=== PATIENT | female | born 1960 | race Caucasian/White ===

== ENCOUNTER 2016-09-30 20:27 | Emergency (ER) | payer MEDICARE, MEDICAID ==
[2016-09-30 22:56] VITALS: BP 117/74
--- NOTE | 2016-10-01 11:36 | CR ---
INDICATION: Fever. CHEST: Two PA views and a lateral view of the chest 09/30/2016, were compared with 07/03/2015 and 06/28/2013. Prominent AP diameter and somewhat flattened diaphragm leaves suggest COPD. No consolidating pneumonia or effusion could be identified, with somewhat heavy markings in the lower lung mercedes again noted, most likely fibrotic in nature. However, at the lung bases and especially on the right lung base and behind the heart on the left, it is difficult to exclude areas of patchy bronchopneumonia due to those heavy markings. The heart appeared normal in size and shape. The aorta is tortuous. Degenerative changes are noted in the spine of moderate degree. IMPRESSION: 1. No definite acute process, but difficult to exclude patchy bronchopneumonia at the lung bases due to somewhat heavy markings, most likely on the basis of fibrosis. 2. ASD aorta. 3. Probable COPD. 4. DJD spine. MTDD
--- NOTE | 2016-10-02 02:38 | ER ---
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 Martinez that her mesh in her abdomen from previous abdominal incisional hernias is disintegrating and will be following up to see Dr. Martinez this week. "It's breaking up." The patient had 101.8 temperature tonight. She has taken Tylenol and ibuprofen at 1830 hours, now the temperature is 100.1 orally. The patient is concerned about her fever and wanted to know if there is a problem with her mesh. REVIEW OF SYSTEMS: Otherwise negative except for noted above. ALLERGIES: Tegretol, Dilantin, alprazolam, Dilaudid, lorazepam, and prednisone - caused depression. OTHER DIAGNOSES: Hypothyroidism, type 2 diabetes, partial small bowel resection, gastroesophageal reflux, inguinal herniorrhaphy, incisional hernias of anterior abdominal wall with complications. MEDICATIONS: 1. Paxil 20 mg daily. 2. Levothyroxine 100 mcg daily. 3. Gabapentin 600 mg t.i.d. 4. Nexium 40 mg daily. 5. Albuterol 2 puffs q.i.d. 6. Acetaminophen p.r.n. PHYSICAL EXAMINATION: VITAL SIGNS: Blood pressure 133/86, heart rate 16, O2 saturations 99%, temperature 37.8 degrees centigrade. GENERAL: Alert woman, mild anxiety, has mild abdominal discomfort. HEENT: PERRLA intact. Pharynx without abnormality. Adequate hydration. Moist mucosa. NECK: Supple. No thyromegaly or masses in neck. LUNGS: Clear to auscultation without rales, rhonchi, or wheezes. ABDOMEN: She has multiple transverse paper tapes approximately 20 across the anterior abdomen over the fistula site and has a dressing. No erythema noted. Slight drainage, mild foul odor. No guarding. No rebound. No distention. Bowel sounds are present. No CVA percussion tenderness. PELVIC: Not performed. RECTAL: Not performed. EXTREMITIES: Lower extremities without edema. Deep tendon reflexes hypoactive upper and lower extremities. Cranial nerves 2 through 12 intact. LABORATORY STUDIES: White count 5600, PMNs 69, lymphocytes 19, monos 10, hemoglobin 11.3, platelets 203,000. Sodium 133, low; 3.6 potassium, low, but normal; chloride 104; CO2 of 22. GFR 57, slightly low. Glucose 122, reactive hyperglycemia. Lactic acid 1.4, normal. Calcium 8.5, bilirubin 0.6, AST 25, ALT 13, alkaline phosphatase 69, C-reactive protein 12.9. Urinalysis; many bacteria, 20/30 wbc's, few epithelial cells, large leukocyte esterase, moderate occult blood, etiology for the patient's fever indeterminate. It may be caused by mesh and abdominal enterocutaneous fistula, but presently I do not feel she has a significant complication for abdominal lesion. Urine was abnormal, but she is asymptomatic regarding urinary tract infection with multiple medication/antibiotic use in the past. I am loath to just throw some antibiotics at her. Per the [facility] - asymptomatic urinary tract infection, I do not feel the urinary tract is the source of her symptoms, she does not have frequency, urgency, dysuria, or difficulty passing urine. She is advised to continue taking fluids and keep her appointment with Dr. Martinez. Blood and urine cultures are pending and if any abnormalities are noted, she will be started on antibiotics earlier than that. DIAGNOSES: 1. Fever, etiology undetermined. 2. Asymptomatic bacteriuria, plan not to treat. 3. Several mesh breakdowns, multiple surgeries with enterocutaneous fistula and current one is breaking down causing inflammatory process and drainage in the anterior abdomen. 4. Hypothyroidism, treated. 5. Gastroesophageal reflux disease. 6. Inguinal herniorrhaphy, treated. 7. Multiple allergies to carbamazepine, phenytoin, morphine, lorazepam, and prednisone. Influenza test performed. Chest x-ray is negative. /[id number] LANETTE/RHETT
== END 2016-09-30 23:00 | disposition home or self-care (01) ==
LOC: FB.ED 20:27
DX: R50.9 Fever, unspecified (principal); K63.2 Fistula of intestine; E03.9 Hypothyroidism, unspecified; K21.9 Gastro-esophageal reflux disease without esophagitis; Z88.8 Allergy status to other drugs, medicaments and biological substances; Z88.6 Allergy status to analgesic agent; Z79.899 Other long term (current) drug therapy; E11.9 Type 2 diabetes mellitus without complications
CPT/HCPCS: 36415; 71020; 80053; 81001; 83605; 85025; 86140; 87040; 87086; 87088; 87186; 87804; 99283

== ENCOUNTER 2016-12-13 02:05 | Emergency (ER) | payer MEDICARE, MEDICAID ==
[2016-12-13 02:48] VITALS: BP 102/72
--- NOTE | 2016-12-13 12:48 | ER ---
DATE SEEN: 12/13/2016 TIME: The patient was seen at 0230 hours. CHIEF COMPLAINT: Increased drainage from a fistula and abdominal wound. HISTORY OF PRESENT ILLNESS: This 56-year-old woman with status post cancer resection in 2006, postoperative enterocutaneous fistula formation with subsequent revisions and complications of mesh and wound breakdown, status post previous gastric bypass surgery, 08/2014 (or 2016-patient uncertain). She was evaluated at [place] and subsequently on April 2016, went and had four revision surgeries on different days. She seemed to get better, but still has recurrent intermittent drainage and now the drain has been magnified to four times the usual amount that she experiences. She denies fever, cough, sore throat, chest pain, or shortness of breath. CURRENT MEDICATIONS: 1. Albuterol inhaler. 2. Tylenol Extra Strength 1000 mg q.6 hours. 3. Advair Diskus 250/50. 4. Nexium 40 mg daily. 5. Paxil 40 mg daily. 6. Levothyroxine 100 mcg daily. 7. Gabapentin 600 mg t.i.d. 8. Octreotide as needed IV. 9. Tizanidine for back pain 2 mg at bedtime. REVIEW OF SYSTEMS: HEENT: Negative. Mouth seems dry frequently, it is more than usual. Denies eye pain or headaches. NECK: Stiffness. LUNGS: Denies shortness of breath or cough, chest pain, or irregular heartbeat. ABDOMEN: Mild discomfort, not extensive. It is just the drainage that is a problem for her. MUSCULOSKELETAL: She has significant back pain with her elevated weight, at one time was 198 pounds. Now, she has gone to 183 pounds. With this weight loss, her back pain has improved and it is less. She has peripheral neuropathy and spasm from her lower back. Presently, the spasm is 0/10. Before she started tizanidine, it was extensive. Tizanidine has diminished her spasm and back discomfort markedly. The patient is edentulous. Occasionally, uses suckers - sucks on hard candies. She has been followed by the [facility] pharmacist and Dr. Martinez for a PICC line and TPN. She drinks minimal fluids and often times takes a dye blender, crushes ice and sucks on ice and uses ice to increased fluids, and to diminish the oral sucking and also swallowing needs, even though she takes fluid by using ice. ALLERGIES: Tegretol, Dilantin, Xanax, Dilaudid, Ativan, and prednisone. OTHER DIAGNOSES/PAST MEDICAL HISTORY: 1. Hypothyroidism. 2. Gastroesophageal reflux disease. 3. Inguinal hernia. PHYSICAL EXAMINATION: VITAL SIGNS: Blood pressure 102/72, heart rate 74, respirations 18, oxygen saturation 99%, and temperature is 36.4 degrees centigrade. Blood pressures supine 113/66, heart rate 59; sitting blood pressure 107/68, heart rate 68; and standing blood pressure 91/45, heart rate 95. CONSTITUTIONAL: The patient has remarkable good spirits, chuckles frequently, and edentulous. She has a trace of flash erythema on her face. It is not evanescent, but when she moves around and sits up, then it changes slightly. TMs negative. Pharynx dry. Oral mucosa appear edentulous. No thyromegaly, mass in neck, or cervical adenopathy. LUNGS: Clear to auscultation without rales, rhonchi, or wheezes. HEART: S1, S2. No murmur. Regular rate and rhythm. ABDOMEN: Soft, very demonstrable invagination- cavitation in anterior abdominal wall with central mid upper third distal two- thirds junction area of dark green, moist waterish fluid demonstrated. DERMIS: Has extensive scattered patches of erythema (secondary to tape). No vesicles, blisters, or bullae. No rents in the epidermis. Bowel sounds present. No guarding. EXTREMITIES: Without edema. No tenderness. LABORATORY STUDIES: Pending. ASSESSMENT: 1. Mild dehydration with orthostatic blood pressure changes with compensatory tachycardia. 2. Status post mesh implantation with fistula, multiple surgeries. 3. Weight loss over two months, 18 plus pounds. 4. Hypothyroidism. 5. Type 2 diabetes. 6. Small bowel resection. 7. GERD. 8. Inguinal herniorrhaphy. 9. Incisional hernias, anterior abdominal wall with complications. 10.Gastric bypass history. 11.Dehydration. METABOLIC STUDIES: Pending. PLAN: 1. The patient to follow up with Dr. Martinez in 24 to 48 hours. 2. Continue taking increases fluids orally, ice. 3. The patient is to consult with Dr. Martinez and the [facility] team whether she should be started on IVs to supplement the TPN. 4. TPN - question if she is a risk for renal stones and/or gastric bypass- induced renal stones. 5. Weight loss of 18 pounds over the last several months. 6. Skin breakdown. No evidence for bullae or vesicles, but irritation from multiple taping of her anterior abdominal wall. 7. Other diagnoses of hypothyroidism, type 2 diabetes, small bowel resection, gastroesophageal reflux disease, inguinal herniorrhaphy, and incisional hernias of anterior abdominal wall. 8. Depression, treated. /[id number] LANETTE/RHETT
== END 2016-12-13 03:30 | disposition home or self-care (01) ==
LOC: FB.ED 02:05
DX: E86.0 Dehydration (principal); E03.9 Hypothyroidism, unspecified; E11.9 Type 2 diabetes mellitus without complications; K21.9 Gastro-esophageal reflux disease without esophagitis; Z98.890 Other specified postprocedural states; K43.2 Incisional hernia without obstruction or gangrene; Z90.49 Acquired absence of other specified parts of digestive tract; Z98.84 Bariatric surgery status; Z79.899 Other long term (current) drug therapy; Z88.5 Allergy status to narcotic agent; Z88.8 Allergy status to other drugs, medicaments and biological substances
CPT/HCPCS: 36415; 80053; 83605; 85025; 86140; 99283; 99284

== ENCOUNTER 2017-01-09 03:32 | Emergency (ER) | payer MEDICARE, MEDICAID, SELFPAY ==
[2017-01-09] MEDS ORDERED: Cephalexin 500 MG Cap PO ONE (04:06)
--- NOTE | 2017-01-09 04:15 | EDM.PDOC ---
ED HPI GENERAL MEDICAL PROBLEM - General Chief Complaint: Skin Complaint Stated Complaint: INFECTION AND SWOLLEN FACE Time Seen by Provider: 01/09/17 04:00 Source of Information: Reports: Patient, Old Records History Limitations: Reports: No Limitations - History of Present Illness INITIAL COMMENTS - FREE TEXT/NARRATIVE: 56 yo female developed what she thought was a pimple on the right side of her mouth a couple days ago. She woke from sleep tonight with swelling of that area that extends to her R cheek. No fever or chills. No drainage. Onset Date: 01/07/17 Duration: Day(s): Location: Reports: Face Quality: Reports: Dull Severity: Mild Improves with: Reports: None Worsens with: Reports: Other (time) Context: Reports: Other (started as a ? 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: Reports: Other (see below) (None) R facial area Pain Score (Numeric/FACES): 5 - Related Data Allergies Allergy/AdvReac Type Severity Reaction Status Date / Time carbamazepine [From Tegretol] Allergy Bronchospas Verified 12/13/16 02:32 ms phenytoin sodium Allergy Rash Verified 12/13/16 02:32 [From Dilantin] phenytoin sodium extended Allergy Rash Verified 12/13/16 02:32 [From Dilantin] alprazolam [From Xanax] AdvReac Hallucinati Verified 12/13/16 02:32 ons hydromorphone HCl AdvReac Hallucinati Verified 12/13/16 02:32 [From Dilaudid] ons lorazepam [From Ativan] AdvReac Cannot Verified 12/13/16 02:32 Remember prednisone AdvReac Depression Verified 12/13/16 02:32 Home Meds: Home Meds Gabapentin [Neurontin] 300 mg PO DAILY 06/28/13 [History] Albuterol Sulfate [Proair Hfa] 2 puff PO QID PRN 09/14/14 [History] Levothyroxine [Synthroid] 100 mcg PO DAILY 09/16/14 [History] Acetaminophen [Tylenol Extra Strength] 1,000 mg PO Q6H PRN 05/04/16 [History] PARoxetine HCl [Paxil] 40 mg PO DAILY 11/19/16 [History] Fluticasone/Salmeterol [Advair 250-50 Diskus] 1 puff INH BID PRN 12/13/16 [ History] Octreotide Acetate 100 mcg SQ TID 12/13/16 [History] tiZANidine 2 mg PO BEDTIME 12/13/16 [History] Cephalexin [IJD: Cephalexin] 500 mg PO Q6H #20 cap 01/09/17 [Rx] Esomeprazole Magnesium [Nexium] 40 mg PO DAILY 01/09/17 [History] Gabapentin [Neurontin] 900 mg PO BEDTIME 01/09/17 [History] Past Medical History HEENT History: Reports: Sinusitis Cardiovascular History: Reports: Blood Clots/VTE/DVT, Hypertension Other Cardiovascular History: not taking any anti-hypertensive meds anymore Respiratory History: Reports: Asthma, COPD Gastrointestinal History: Reports: Colon Polyp, GERD, Other (See Below) Other Gastrointestinal History: currently on TPN, occasional constipation, enterocutaneous fistula anterior abdomen Genitourinary History: Reports: None ROAD CUTTER History: Reports: , Other (See Below) Other OB/BYN History: ovarian cyst Musculoskeletal History: Reports: Back Pain, Chronic, Other (See Below) Other Musculoskeletal History: fx elbow Neurological History: Reports: Brain Injury, Concussion, Head Trauma, Neuropathy , Peripheral Psychiatric History: Reports: Anxiety, Depression Endocrine/Metabolic History: Reports: Diabetes, Type II, Hypothyroidism Hematologic History: Reports: None Oncologic (Cancer) History: Reports: Colon Dermatologic History: Reports: Eczema, Psoriasis - Infectious Disease History Infectious Disease History: Reports: Measles, Mumps - Past Surgical History HEENT Surgical History: Reports: Naso-Sinus Surgery Respiratory Surgical History: Reports: None GI Surgical History: Reports: Colon, Colonoscopy, EGD, Hernia, Abdominal, Lysis of Adhesions Other GI Surgeries/Procedures: hx of colon cancer; had colon surgery, Female Surgical History: Reports: Section Neurological Surgical History: Reports: None Dermatological Surgical History: Reports: None Social & Family History - Family History Family Medical History: Noncontributory - Tobacco Use Smoking Status *Q: Former Smoker Years of Tobacco use: 30 Packs/Tins Daily: 1 Used Tobacco, but Quit: Yes Month Tobacco Last Used: 04/2016 Second Hand Smoke Exposure: No - Caffeine Use Caffeine Use: Reports: Coffee, Soda, Tea - Alcohol Use Days Per Week of Alcohol Use: 0 - Recreational Drug Use Recreational Drug Use: No Drug Use in Last 12 Months: No Recreational Drug Type: Reports: Marijuana/Hashish Recreational Drug Use Frequency: Rarely ED ROS GENERAL - Review of Systems Review Of Systems: See Below Constitutional: Reports: No Symptoms HEENT: Reports: No Symptoms, Other (edentulous) Respiratory: Reports: No Symptoms Cardiovascular: Reports: No Symptoms GI/Abdominal: Reports: No Symptoms : Reports: No Symptoms Musculoskeletal: Reports: No Symptoms Skin: Reports: Erythema (and puffiness extending from the R side of her mouth to the cheek. ) Neurological: Reports: No Symptoms ED EXAM, SKIN/RASH Exam: See Below Exam Limited By: No Limitations General Appearance: Alert, WD/WN, No Apparent Distress Eye Exam: Bilateral Eye: Normal Inspection Ears: Normal External Exam, Normal Canal, Hearing Grossly Normal Nose: Normal Inspection, Normal Mucosa, No Blood Throat/Mouth: Normal Lips, Normal Voice, No Airway Compromise, Inflammation ( and redness extending from the right side of her mouth to the cheek area. ), Other (Has no teeth.) Head: Atraumatic, Normocephalic Neck: Normal Inspection, Supple, Non-Tender. No: Lymphadenopathy (R), Lymphadenopathy (L) Respiratory/Chest: No Respiratory Distress Neurological: Alert, Oriented, Normal Cognition, No Motor/Sensory Deficits Psychiatric: Normal Affect, Normal Mood Skin: Warm, Dry, Intact, Erythema (R cheek to the R side of her mouth. No drainage.) Location, Skin: Face Characteristics: Erythematous Associated features: Warmth, Tenderness, Wwelling (mild swelling.), Inflammation. No: Crusting, Weeping Lymphatic: No Adenopathy Course - Vital Signs Text/Narrative:: cephalexin 1000 mg po Last Recorded V/S: Last Vital Signs Temp 36.4 C 01/09/17 03:35 Pulse 77 01/09/17 03:35 Resp 18 01/09/17 03:35 BP 112/66 01/09/17 03:35 Pulse Ox 98 01/09/17 03:35 - Orders/Labs/Meds Meds: Medications Discontinued Medications Generic Name Dose Route Start Last Admin Trade Name Freq PRN Reason Stop Dose Admin Cephalexin 1,000 mg 01/09/17 04:06 Keflex PO 01/09/17 04:07 ONETIME ONE Departure - Departure Time of Disposition: 04:30 Disposition: Home, Self-Care 01 Condition: Good Clinical Impression: Facial cellulitis - Discharge Information Prescriptions: Cephalexin [IJD: Cephalexin] 500 mg PO Q6H #20 cap Referrals: Michael Mas MD [Primary Care Provider] - Forms: ED Department Discharge Additional Instructions: Take cephalexin 500 mg every 6 hrs for infection treatment. Take acetaminophen as needed for pain relief. Apply warm compresses to area as able. Call in the morning regarding potential rescheduling of your colonoscopy. Recheck in the clinic in 24-48 hrs regarding your infection, call for an appt.
[2017-01-09 04:37] VITALS: BP 110/62
== END 2017-01-09 04:28 | disposition home or self-care (01) ==
LOC: FB.ED 03:32
DX: L03.211 Cellulitis of face (principal); I10 Essential (primary) hypertension; J45.909 Unspecified asthma, uncomplicated; J44.9 Chronic obstructive pulmonary disease, unspecified; K21.9 Gastro-esophageal reflux disease without esophagitis; E11.9 Type 2 diabetes mellitus without complications; E03.9 Hypothyroidism, unspecified; F32.9 Major depressive disorder, single episode, unspecified; F41.9 Anxiety disorder, unspecified; Z98.890 Other specified postprocedural states; Z87.891 Personal history of nicotine dependence; Z79.899 Other long term (current) drug therapy; Z88.8 Allergy status to other drugs, medicaments and biological substances
CPT/HCPCS: 99283; A9270

== ENCOUNTER 2019-04-05 14:50 | Emergency (ER) | payer MEDICAID, MEDICARE, SELFPAY ==
[2019-04-05] MEDS ORDERED: Lidocaine 2% 5 ML SDV INFILT ONE (14:51)
[2019-04-05 15:19] VITALS: BP 144/71; PULSE 89
--- NOTE | 2019-04-05 15:27 | EDM.PDOC ---
ED HPI GENERAL MEDICAL PROBLEM - General Chief Complaint: Laceration Stated Complaint: LACERATION LT POINTER FINGER Time Seen by Provider: 04/05/19 15:00 Source of Information: Reports: Patient History Limitations: Reports: No Limitations - History of Present Illness INITIAL COMMENTS - FREE TEXT/NARRATIVE: Hien Barrios comes into [facility] ED with a lacerated R index finger that occurred today while washing dishes. Apparently a glass shattered while washing, responsible for the injury. Her CMS is intact, with full ROM. She has a bloodied rag wrapped around the wound. She believes her Tetanus vax status is current. Left Finger-Index Pain Score (Numeric/FACES): 5 - Related Data Allergies Allergy/AdvReac Type Severity Reaction Status Date / Time carbamazepine [From Tegretol] Allergy Bronchospas Verified 12/13/16 02:32 ms phenytoin sodium Allergy Rash Verified 12/13/16 02:32 [From Dilantin] phenytoin sodium extended Allergy Rash Verified 12/13/16 02:32 [From Dilantin] alprazolam [From Xanax] AdvReac Hallucinati Verified 12/13/16 02:32 ons hydromorphone HCl AdvReac Hallucinati Verified 12/13/16 02:32 [From Dilaudid] ons lorazepam [From Ativan] AdvReac Cannot Verified 12/13/16 02:32 Remember prednisone AdvReac Depression Verified 12/13/16 02:32 Home Meds: Home Meds Gabapentin [Neurontin] 300 mg PO DAILY 06/28/13 [History] Albuterol Sulfate [Proair Hfa] 2 puff PO QID PRN 09/14/14 [History] Levothyroxine [Synthroid] 100 mcg PO DAILY 09/16/14 [History] Acetaminophen [Tylenol Extra Strength] 1,000 mg PO Q6H PRN 05/04/16 [History] PARoxetine HCl [Paxil] 40 mg PO DAILY 11/19/16 [History] Fluticasone/Salmeterol [Advair 250-50 Diskus] 1 puff INH BID PRN 12/13/16 [ History] Octreotide Acetate 100 mcg SQ TID 12/13/16 [History] tiZANidine 2 mg PO BEDTIME 12/13/16 [History] Cephalexin [IJD: Cephalexin] 500 mg PO Q6H #20 cap 01/09/17 [Rx] Esomeprazole Magnesium [Nexium] 40 mg PO DAILY 01/09/17 [History] Gabapentin [Neurontin] 900 mg PO BEDTIME 01/09/17 [History] Celecoxib [CeleBREX] 200 mg PO BID #14 cap 01/12/17 [Rx] traMADol HCl [Ultram] 50 mg PO Q6HR PRN #20 tablet 01/12/17 [Rx] Past Medical History HEENT History: Reports: Sinusitis Cardiovascular History: Reports: Blood Clots/VTE/DVT, Hypertension Other Cardiovascular History: not taking any anti-hypertensive meds anymore Respiratory History: Reports: Asthma, COPD Gastrointestinal History: Reports: Colon Polyp, GERD, Other (See Below) Other Gastrointestinal History: currently on TPN, occasional constipation, enterocutaneous fistula anterior abdomen Genitourinary History: Reports: None 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 WATER PURIFICATION History: Reports: , Other (See Below) Other CHEMIST WATER PURIFICATION History: ovarian cyst Musculoskeletal History: Reports: Back Pain, Chronic, Other (See Below) Other Musculoskeletal History: fx elbow Neurological History: Reports: Brain Injury, Concussion, Head Trauma, Neuropathy , Peripheral Other Neuro History: has bulging disc in neck, Psychiatric History: Reports: Anxiety, Depression Endocrine/Metabolic History: Reports: Diabetes, Type II, Hypothyroidism Hematologic History: Reports: None Oncologic (Cancer) History: Reports: Colon Other Oncologic History: pre-cervical CA Dermatologic History: Reports: Eczema, Psoriasis - Infectious Disease History Infectious Disease History: Reports: Measles, Mumps Other Infectious Disease History: Epstine bar, - Past Surgical History HEENT Surgical History: Reports: Naso-Sinus Surgery Respiratory Surgical History: Reports: None GI Surgical History: Reports: Colon, Colonoscopy, EGD, Hernia, Abdominal, Lysis of Adhesions Other GI Surgeries/Procedures: hx of colon cancer; had colon surgery, Female Surgical History: Reports: Section Neurological Surgical History: Reports: None Dermatological Surgical History: Reports: None Social & Family History - Family History Family Medical History: Noncontributory - Caffeine Use Caffeine Use: Reports: Coffee, Soda, Tea ED ROS GENERAL - Review of Systems Review Of Systems: ROS reveals no pertinent complaints other than HPI. ED EXAM, SKIN/RASH Exam: See Below Exam Limited By: No Limitations General Appearance: Alert, WD/WN, No Apparent Distress Head: Normocephalic Neck: Normal Inspection Respiratory/Chest: Lungs Clear Cardiovascular: Regular Rate, Rhythm Back Exam: Normal Inspection Extremities: Normal Range of Motion, Other (3.2 cm flap type laceration R index finger) Neurological: Alert, Oriented, CN II-XII Intact, No Motor/Sensory Deficits Psychiatric: Normal Affect, Normal Mood Skin: Warm, Dry, Normal Color, No Rash, Wound/Incision (3.2 cm flap type laceration R index finger) ED SKIN PROCEDURES - Laceration/Wound Repair Right Lateral Digit - 2nd (Index) Appearance: Subcutaneous Distal NVT: Neuro & Vascular Intact, No Tendon Injury Anesthetic Type: Local Local Anesthesia - Lidocaine (Xylocaine): 2% Plain Local Anesthetic Volume: 3cc Skin Prep: Chlorhexidine (Hibiciens) Exploration/Debridement/Repair: Wound Explored, No Foreign Material Found Closed with: Sutures Lac/Wound length In cm: 3.2 Suture Size: 4-0 # of Sutures: 6 Suture Type: Nylon, Interrupted, Simple Drain Placement: No Sterile Dressing Applied: Nurse Tetanus Status Addressed: Yes Complications: No Course - Vital Signs Text/Narrative:: Patient tolerated procedure well. Last Recorded V/S: Last Vital Signs Temp 36.6 C 04/05/19 15:12 Pulse 89 04/05/19 15:12 Resp 18 04/05/19 15:12 BP 144/71 H 04/05/19 15:12 Pulse Ox 97 04/05/19 15:12 Departure - Departure Time of Disposition: 15:20 Disposition: Home, Self-Care 01 Condition: Good Clinical Impression: Laceration of right index finger Qualifiers: Encounter type: initial encounter Damage to nail status: without damage Foreign body presence: without foreign body Qualified Code(s): S61.210A - Laceration without foreign body of right index finger without damage to nail, initial encounter - Discharge Information *PRESCRIPTION DRUG MONITORING PROGRAM REVIEWED*: Not Applicable *COPY OF PRESCRIPTION DRUG MONITORING REPORT IN PATIENT JONATAN: Not Applicable Instructions: Stitches, Jose Raul, or Adhesive Wound Closure, [id number] Referrals: Michael Mas MD [Primary Care Provider] - Forms: ED Department Discharge Additional Instructions: Sutures out in 10 days by primary care doctor. Keep area clean and dry. Watch for signs of infection like drainage, redness and swelling. - Problem List & Annotations (1) Laceration of right index finger SNOMED Code(s): 98141201257747036 Code(s): S61.210A - LACERATION W/O FB OF R IDX FNGR W/O DAMAGE TO NAIL, INIT Status: Acute Current Visit: Yes Annotation/Comment:: Routine wound cares , and SR in 10 days. Check on Tetanus vax status with PCP this week. Qualifiers: Encounter type: initial encounter Damage to nail status: without damage Foreign body presence: without foreign body Qualified Code(s): S61.210A - Laceration without foreign body of right index finger without damage to nail, initial encounter - Problem List Review Problem List Initiated/Reviewed/Updated: Yes - Assessment/Plan Plan: Follow up with PCP.
== END 2019-04-05 15:20 | disposition home or self-care (01) ==
LOC: FB.ED 14:50
DX: S61.210A Laceration without foreign body of right index finger without damage to nail, initial encounter (principal); I10 Essential (primary) hypertension; K21.9 Gastro-esophageal reflux disease without esophagitis; E11.40 Type 2 diabetes mellitus with diabetic neuropathy, unspecified; F41.9 Anxiety disorder, unspecified; F32.9 Major depressive disorder, single episode, unspecified; E03.9 Hypothyroidism, unspecified; J45.909 Unspecified asthma, uncomplicated; Z88.8 Allergy status to other drugs, medicaments and biological substances; Z88.1 Allergy status to other antibiotic agents; Z79.899 Other long term (current) drug therapy; Z79.51 Long term (current) use of inhaled steroids; W25.XXXA Contact with sharp glass, initial encounter; Y93.G1 Activity, food preparation and clean up
CPT/HCPCS: 12002; 99282; J2001; 40830

== ENCOUNTER 2019-04-17 12:57 | Emergency (ER) | payer MEDICAID, MEDICARE ==
[2019-04-17] MEDS ORDERED: Ondansetron 4 MG/2 ML SDV IVPUSH ONE (13:38)
[2019-04-17] MEDS ORDERED: Pantoprazole 40 MG Vial IVPUSH ONE (13:38)
[2019-04-17] MEDS ORDERED: Sodium Chloride 0.9% 1,000 ML IV SCH (13:45)
[2019-04-17 16:27] VITALS: BP 119/83; PULSE 73
--- NOTE | 2019-04-17 16:44 | EDM.PDOC ---
ED HPI GENERAL MEDICAL PROBLEM - General Chief Complaint: Gastrointestinal Problem Stated Complaint: FLU LIKE SYMPTOMS Time Seen by Provider: 04/17/19 13:00 Source of Information: Reports: Patient, Family History Limitations: Reports: No Limitations - History of Present Illness INITIAL COMMENTS - FREE TEXT/NARRATIVE: 58 y.o.w.f with h/o multiple abdominal surgeries in the past, came to the ed due to pain at her abd. Generalized. Pain is better when she is lying on her left side. She vomited multiple times today after she ate. No trauma. No Cp or SOB, No other acute med issues. BP 90/59 RR 18 Pulse ox 97% on RA Temp 36.8 Pulse 103 Onset Date: 04/16/19 Onset Time: 08:00 Duration: Day(s):, Getting Worse, Intermittent Location: Reports: Abdomen Quality: Reports: Burning, Dull, Throbbing Severity: Moderate Improves with: Reports: Medication Worsens with: Reports: Eating (fatty food) Context: Reports: Other Associated Symptoms: Reports: Nausea/Vomiting - Related Data Allergies Allergy/AdvReac Type Severity Reaction Status Date / Time carbamazepine [From Tegretol] Allergy Bronchospas Verified 12/13/16 02:32 ms phenytoin sodium Allergy Rash Verified 12/13/16 02:32 [From Dilantin] phenytoin sodium extended Allergy Rash Verified 12/13/16 02:32 [From Dilantin] alprazolam [From Xanax] AdvReac Hallucinati Verified 12/13/16 02:32 ons hydromorphone HCl AdvReac Hallucinati Verified 12/13/16 02:32 [From Dilaudid] ons lorazepam [From Ativan] AdvReac Cannot Verified 12/13/16 02:32 Remember prednisone AdvReac Depression Verified 12/13/16 02:32 Home Meds: Home Meds Gabapentin [Neurontin] 300 mg PO DAILY 06/28/13 [History] Albuterol Sulfate [Proair Hfa] 2 puff PO QID PRN 09/14/14 [History] Levothyroxine [Synthroid] 100 mcg PO DAILY 09/16/14 [History] Acetaminophen [Tylenol Extra Strength] 1,000 mg PO Q6H PRN 05/04/16 [History] PARoxetine HCl [Paxil] 40 mg PO DAILY 11/19/16 [History] Fluticasone/Salmeterol [Advair 250-50 Diskus] 1 puff INH BID PRN 12/13/16 [ History] tiZANidine 2 mg PO BEDTIME 12/13/16 [History] Esomeprazole Magnesium [Nexium] 40 mg PO DAILY 01/09/17 [History] Gabapentin [Neurontin] 900 mg PO BEDTIME 01/09/17 [History] Celecoxib [CeleBREX] 200 mg PO BID #14 cap 01/12/17 [Rx] .Ozempic 0.5 mg SQ WE 04/17/19 [History] Aspirin 325 mg PO DAILY 04/17/19 [History] Lisinopril 20 mg PO DAILY 04/17/19 [History] Ondansetron [Zofran ODT] 4 mg PO Q6H PRN #12 tab.dis 04/17/19 [Rx] Potassium 500 mg PO DAILY 04/17/19 [History] glipiZIDE [Glipizide ER] 10 mg PO DAILY 04/17/19 [History] Past Medical History HEENT History: Reports: Sinusitis Cardiovascular History: Reports: Blood Clots/VTE/DVT, Hypertension Other Cardiovascular History: not taking any anti-hypertensive meds anymore Respiratory History: Reports: Asthma, COPD Gastrointestinal History: Reports: Colon Polyp, GERD, Other (See Below) Other Gastrointestinal History: currently on TPN, occasional constipation, enterocutaneous fistula anterior abdomen Genitourinary History: Reports: None GEOGRAPHIC INFORMATION SYSTEMS DIRECTOR History: Reports: , Other (See Below) Other GEOGRAPHIC INFORMATION SYSTEMS DIRECTOR History: ovarian cyst Musculoskeletal History: Reports: Back Pain, Chronic, Other (See Below) Other Musculoskeletal History: fx elbow Neurological History: Reports: Brain Injury, Concussion, Head Trauma, Neuropathy , Peripheral Other Neuro History: has bulging disc in neck, Psychiatric History: Reports: Anxiety, Depression Endocrine/Metabolic History: Reports: Diabetes, Type II, Hypothyroidism Hematologic History: Reports: None Oncologic (Cancer) History: Reports: Colon Other Oncologic History: pre-cervical CA Dermatologic History: Reports: Eczema, Psoriasis - Infectious Disease History Infectious Disease History: Reports: Measles, Mumps Other Infectious Disease History: Epstine bar, - Past Surgical History HEENT Surgical History: Reports: Naso-Sinus Surgery Respiratory Surgical History: Reports: None GI Surgical History: Reports: Colon, Colonoscopy, EGD, Hernia, Abdominal, Lysis of Adhesions Other GI Surgeries/Procedures: hx of colon cancer; had colon surgery, Female Surgical History: Reports: Section Neurological Surgical History: Reports: None Dermatological Surgical History: Reports: None Social & Family History - Family History Family Medical History: Noncontributory - Tobacco Use Smoking Status *Q: Former Smoker Years of Tobacco use: 30 Used Tobacco, but Quit: Yes Month/Year Tobacco Last Used: 2015 Second Hand Smoke Exposure: No - Caffeine Use Caffeine Use: Reports: Coffee, Soda Other Caffeine Use: daily - Recreational Drug Use Recreational Drug Use: No ED ROS GENERAL - Review of Systems Review Of Systems: See Below Constitutional: Reports: No Symptoms HEENT: Reports: No Symptoms Respiratory: Reports: No Symptoms Cardiovascular: Reports: No Symptoms Endocrine: Reports: No Symptoms GI/Abdominal: Reports: Abdominal Pain : Reports: No Symptoms Musculoskeletal: Reports: No Symptoms Skin: Reports: No Symptoms Neurological: Reports: No Symptoms Psychiatric: Reports: No Symptoms Hematologic/Lymphatic: Reports: No Symptoms Immunologic: Reports: No Symptoms ED EXAM, GI/ABD - Physical Exam Exam: See Below Exam Limited By: No Limitations General Appearance: Alert, WD/WN, Mild Distress Eyes: Bilateral: Normal Appearance Ears: Normal External Exam Nose: Normal Inspection, Normal Mucosa Throat/Mouth: Normal Inspection, Normal Lips, Normal Voice, No Airway Compromise Head: Atraumatic, Normocephalic Neck: Normal Inspection, Supple, Non-Tender Respiratory/Chest: No Respiratory Distress, Lungs Clear, Normal Breath Sounds Cardiovascular: Normal Peripheral Pulses, Regular Rate, Rhythm, No Edema, No Gallop GI/Abdominal Exam: Tender (RUQ with positive Rivera sign) (Female) Exam: Deferred Rectal (Female) Exam: Deferred Back Exam: Normal Inspection, Full Range of Motion Extremities: Normal Inspection, Normal Range of Motion Neurological: Alert, Oriented, CN II-XII Intact, Normal Cognition, Normal Gait Psychiatric: Normal Affect, Normal Mood Skin Exam: Warm, Dry, Intact, Normal Color Lymphatic: No Adenopathy Course - Vital Signs Text/Narrative:: 58 y.o.w.f with h/o multiple abdominal surgeries in the past, came to the ed due to pain at her abd. Generalized. Pain is better when she is lying on her left side. She vomited multiple times today after she ate. No trauma. No Cp or SOB, No other acute med issues. BP 90/59 RR 18 Pulse ox 97% on RA Temp 36.8 Pulse 103 PE: WNWD W F with a pos Rivera sign LUQ of abdomen. Imaging: G=CT abd/pelvis: GBD, U/X Limited: 6 mm gall stone at fundus of Gallbladder, not movable , GB Duct is open Labs: CBC nl BMP pos for a BUN 25 Cr 1.5 and a GFR of 36 Impression: Cholelithiasis, Dehydration, Gastritis Tx: NS, Zofran, Pritronix Reexam: Pt was pain free 4.37 pm Consultation: Dr. Dominick Zavala: Can see pt at this Clinic this Saturday Plan: D/C with instructions Last Recorded V/S: Last Vital Signs Temp 36.4 C 04/17/19 13:00 Pulse 73 04/17/19 15:46 Resp 18 04/17/19 15:46 BP 119/83 04/17/19 15:46 Pulse Ox 96 04/17/19 15:46 - Orders/Labs/Meds Orders: Active Orders 24 hr Category Date Time Status Abdomen Ltd [US] Stat Exams 04/17/19 15:29 Taken Abdomen Pelvis wo Cont [CT] Stat Exams 04/17/19 14:48 Taken Sodium Chloride 0.9% [Normal Saline] 1,000 ml Med 04/17/19 13:45 Active IV ASDIRECTED Medication Orders Sodium Chloride (Normal Saline) 1,000 mls @ 150 mls/hr IV ASDIRECTED SOCORRO Last Admin: 04/17/19 14:10 Dose: 150 mls/hr Labs: Laboratory Tests 04/17/19 04/17/19 04/17/19 Range/Units 13:50 13:50 13:50 WBC 9.4 (4.5-12.0) X10-3/uL RBC 4.35 (3.23-5.20) x10(6)uL Hgb 13.6 (11.5-15.5) g/dL Hct 39.8 (30.0-51.3) % MCV 91.6 (80-96) fL MCH 31.2 (27.7-33.6) pg MCHC 34.1 (32.2-35.4) g/dL RDW 13.2 (11.5-15.5) % Plt Count 338 (125-369) X10(3)uL MPV 7.5 (7.4-10.4) fL Neut % (Auto) 82.4 H (46-82) % Lymph % (Auto) 10.2 L (13-37) % [place] % (Auto) 5.6 (4-12) % Eos % (Auto) 1 (1.0-5.0) % Baso % (Auto) 1 (0-2) % Neut # (Auto) 7.8 (1.6-8.3) # Lymph # (Auto) 1.0 (0.6-5.0) # [place] # (Auto) 0.5 (0.0-1.3) # Eos # (Auto) 0.1 (0.0-0.8) # Baso # (Auto) 0.0 (0.0-0.2) # PT 10.1 (8.7-11.1) INR 1.04 (0.89-1.13) Sodium 143 (135-145) mmol/L Potassium 3.8 (3.5-5.3) mmol/L Chloride 104 (100-110) mmol/L Carbon Dioxide 28 (21-32) mmol/L BUN 25 H (7-18) mg/dL Creatinine 1.5 H (0.55-1.02) mg/dL Est Cr Clr Drug Dosing TNP Estimated GFR (MDRD) 36 L (>60) BUN/Creatinine Ratio 16.7 (9-20) Glucose 82 (80-116) mg/dL Calcium 9.4 (8.6-10.2) mg/dL Total Bilirubin 0.5 (0.1-1.3) mg/dL Direct Bilirubin 0.14 (0.10-0.20) mg/dL AST 97 H (5-25) IU/L ALT 108 H (12-36) U/L Alkaline Phosphatase 191 H (56-112) IU/L Total Protein 8.0 (6.0-8.0) g/dL Albumin 3.9 (3.5-5.2) g/dL Lipase (73-393) U/L 04/17/19 Range/Units 13:50 WBC (4.5-12.0) X10-3/uL RBC (3.23-5.20) x10(6)uL Hgb (11.5-15.5) g/dL Hct (30.0-51.3) % MCV (80-96) fL MCH (27.7-33.6) pg MCHC (32.2-35.4) g/dL RDW (11.5-15.5) % Plt Count (125-369) X10(3)uL MPV (7.4-10.4) fL Neut % (Auto) (46-82) % Lymph % (Auto) (13-37) % [place] % (Auto) (4-12) % Eos % (Auto) (1.0-5.0) % Baso % (Auto) (0-2) % Neut # (Auto) (1.6-8.3) # Lymph # (Auto) (0.6-5.0) # [place] # (Auto) (0.0-1.3) # Eos # (Auto) (0.0-0.8) # Baso # (Auto) (0.0-0.2) # PT (8.7-11.1) INR (0.89-1.13) Sodium (135-145) mmol/L Potassium (3.5-5.3) mmol/L Chloride (100-110) mmol/L Carbon Dioxide (21-32) mmol/L BUN (7-18) mg/dL Creatinine (0.55-1.02) mg/dL Est Cr Clr Drug Dosing Estimated GFR (MDRD) (>60) BUN/Creatinine Ratio (9-20) Glucose (80-116) mg/dL Calcium (8.6-10.2) mg/dL Total Bilirubin (0.1-1.3) mg/dL Direct Bilirubin (0.10-0.20) mg/dL AST (5-25) IU/L ALT (12-36) U/L Alkaline Phosphatase (56-112) IU/L Total Protein (6.0-8.0) g/dL Albumin (3.5-5.2) g/dL Lipase 166 (73-393) U/L Meds: Medications Generic Name Dose Route Start Last Admin Trade Name Freq PRN Reason Stop Dose Admin Sodium Chloride 1,000 mls @ 150 mls/hr 04/17/19 13:45 04/17/19 14:10 Normal Saline IV 150 mls/hr ASDIRECTED SOCORRO Administration Discontinued Medications Generic Name Dose Route Start Last Admin Trade Name Freq PRN Reason Stop Dose Admin Ondansetron HCl 8 mg 04/17/19 13:38 04/17/19 14:20 Zofran IVPUSH 04/17/19 13:39 8 mg ONETIME ONE Administration Pantoprazole Sodium 40 mg 04/17/19 13:38 04/17/19 14:23 Protonix Iv IVPUSH 04/17/19 13:39 40 mg ONETIME ONE Administration Departure - Departure Time of Disposition: 16:39 Disposition: Home, Self-Care 01 Condition: Good Clinical Impression: Gastritis Qualifiers: Gastritis type: unspecified gastritis Chronicity: unspecified Gastritis bleeding: without bleeding Qualified Code(s): K29.70 - Gastritis, unspecified, without bleeding Cholelithiasis Qualifiers: Cholelithiasis location: gallbladder Cholecystitis presence: without cholecystitis Biliary obstruction: without biliary obstruction Qualified Code(s) : K80.20 - Calculus of gallbladder without cholecystitis without obstruction - Discharge Information Prescriptions: Ondansetron [Zofran ODT] 4 mg PO Q6H PRN #12 tab.dis PRN Reason: Nausea Instructions: Gastritis, Adult, [id number], Ondansetron injection, Pantoprazole injection, Cholelithiasis, [id number] Referrals: Michael Mas MD [Primary Care Provider] - Dominick Zavala MD [Physician] - Forms: ED Department Discharge Additional Instructions: Please take Zofran as recommended, please follow up with Dr. Dominick Zavala, Surgeon this April 20 at 1:45 at [facility] , please come back if your symptoms get worse acutely. [place] diet. - My Orders Last 24 Hours: My Active Orders 04/17/19 13:45 Sodium Chloride 0.9% [Normal Saline] 1,000 ml IV ASDIRECTED 04/17/19 14:48 Abdomen Pelvis wo Cont [CT] Stat 04/17/19 15:29 Abdomen Ltd [US] Stat - Assessment/Plan Last 24 Hours: My Active Orders 04/17/19 13:45 Sodium Chloride 0.9% [Normal Saline] 1,000 ml IV ASDIRECTED 04/17/19 14:48 Abdomen Pelvis wo Cont [CT] Stat 04/17/19 15:29 Abdomen Ltd [US] Stat
== END 2019-04-17 17:04 | disposition home or self-care (01) ==
LOC: FB.ED 12:57
DX: K29.70 Gastritis, unspecified, without bleeding (principal); K80.20 Calculus of gallbladder without cholecystitis without obstruction; I10 Essential (primary) hypertension; Z86.718 Personal history of other venous thrombosis and embolism; K21.9 Gastro-esophageal reflux disease without esophagitis; E11.42 Type 2 diabetes mellitus with diabetic polyneuropathy; F41.9 Anxiety disorder, unspecified; F32.9 Major depressive disorder, single episode, unspecified; Z88.8 Allergy status to other drugs, medicaments and biological substances; Z79.890 Hormone replacement therapy; Z79.51 Long term (current) use of inhaled steroids; Z79.82 Long term (current) use of aspirin; Z79.84 Long term (current) use of oral hypoglycemic drugs; Z79.899 Other long term (current) drug therapy
CPT/HCPCS: 36415; 74176; 76705; 80048; 80076; 83690; 85025; 85610; 96361; 96374; 96375; 99284; C9113; J2405; J7030

== ENCOUNTER 2019-06-06 22:10 | Emergency (ER) | payer MEDICARE, MEDICAID ==
[2019-06-06] MEDS ORDERED: Acetaminophen/oxyCODONE 325-5 MG Tab PO ONE (22:11)
[2019-06-06] MEDS ORDERED: Ketorolac 60 MG/2 ML SDV IM ONE (22:29)
--- NOTE | 2019-06-06 22:33 | EDM.PDOC ---
ED HPI GENERAL MEDICAL PROBLEM - General Chief Complaint: Abdominal Pain Stated Complaint: STOMACH PAIN Time Seen by Provider: 06/06/19 22:30 Source of Information: Reports: Patient History Limitations: Reports: No Limitations - History of Present Illness INITIAL COMMENTS - FREE TEXT/NARRATIVE: Hien is a 58 yo female with abdo pain,s/p lap tamia. Discharged to day from [place] but was unable to get to the drug store in time.She describes pain 02/28, nothing helps - Related Data Allergies Allergy/AdvReac Type Severity Reaction Status Date / Time carbamazepine [From Tegretol] Allergy Bronchospas Verified 12/13/16 02:32 ms phenytoin sodium Allergy Rash Verified 12/13/16 02:32 [From Dilantin] phenytoin sodium extended Allergy Rash Verified 12/13/16 02:32 [From Dilantin] alprazolam [From Xanax] AdvReac Hallucinati Verified 12/13/16 02:32 ons hydromorphone HCl AdvReac Hallucinati Verified 12/13/16 02:32 [From Dilaudid] ons lorazepam [From Ativan] AdvReac Cannot Verified 12/13/16 02:32 Remember prednisone AdvReac Depression Verified 12/13/16 02:32 Home Meds: Home Meds Gabapentin [Neurontin] 300 mg PO DAILY 06/28/13 [History] Albuterol Sulfate [Proair Hfa] 2 puff PO QID PRN 09/14/14 [History] Levothyroxine [Synthroid] 100 mcg PO DAILY 09/16/14 [History] Acetaminophen [Tylenol Extra Strength] 1,000 mg PO Q6H PRN 05/04/16 [History] PARoxetine HCl [Paxil] 40 mg PO DAILY 11/19/16 [History] Fluticasone/Salmeterol [Advair 250-50 Diskus] 1 puff INH BID PRN 12/13/16 [ History] tiZANidine 2 mg PO BEDTIME 12/13/16 [History] Esomeprazole Magnesium [Nexium] 40 mg PO DAILY 01/09/17 [History] Gabapentin [Neurontin] 900 mg PO BEDTIME 01/09/17 [History] Celecoxib [CeleBREX] 200 mg PO BID #14 cap 01/12/17 [Rx] .Ozempic 0.5 mg SQ WE 04/17/19 [History] Aspirin 325 mg PO DAILY 04/17/19 [History] Lisinopril 20 mg PO DAILY 04/17/19 [History] Ondansetron [Zofran ODT] 4 mg PO Q6H PRN #12 tab.dis 04/17/19 [Rx] Potassium 500 mg PO DAILY 04/17/19 [History] glipiZIDE [Glipizide ER] 10 mg PO DAILY 04/17/19 [History] Past Medical History HEENT History: Reports: Sinusitis Cardiovascular History: Reports: Blood Clots/VTE/DVT, Hypertension Other Cardiovascular History: not taking any anti-hypertensive meds anymore Respiratory History: Reports: Asthma, COPD Gastrointestinal History: Reports: Colon Polyp, GERD, Other (See Below) Other Gastrointestinal History: currently on TPN, occasional constipation, enterocutaneous fistula anterior abdomen Genitourinary History: Reports: None TEACHERS AIDE History: Reports: , Other (See Below) Other TEACHERS AIDE History: ovarian cyst Musculoskeletal History: Reports: Back Pain, Chronic, Other (See Below) Other Musculoskeletal History: fx elbow Neurological History: Reports: Brain Injury, Concussion, Head Trauma, Neuropathy , Peripheral Other Neuro History: has bulging disc in neck, Psychiatric History: Reports: Anxiety, Depression Endocrine/Metabolic History: Reports: Diabetes, Type II, Hypothyroidism Hematologic History: Reports: None Oncologic (Cancer) History: Reports: Colon Other Oncologic History: pre-cervical CA Dermatologic History: Reports: Eczema, Psoriasis - Infectious Disease History Infectious Disease History: Reports: Measles, Mumps Other Infectious Disease History: Epstine bar, - Past Surgical History HEENT Surgical History: Reports: Naso-Sinus Surgery Respiratory Surgical History: Reports: None GI Surgical History: Reports: Colon, Colonoscopy, EGD, Hernia, Abdominal, Lysis of Adhesions Other GI Surgeries/Procedures: hx of colon cancer; had colon surgery, Female Surgical History: Reports: Section Neurological Surgical History: Reports: None Dermatological Surgical History: Reports: None Social & Family History - Family History Family Medical History: Noncontributory - Caffeine Use Caffeine Use: Reports: Coffee, Soda Other Caffeine Use: daily ED ROS GENERAL - Review of Systems Review Of Systems: Comprehensive ROS is negative, except as noted in HPI. ED EXAM, GI/ABD - Physical Exam Exam: See Below Exam Limited By: No Limitations General Appearance: Alert Eyes: Bilateral: Normal Appearance, EOMI Respiratory/Chest: No Respiratory Distress GI/Abdominal Exam: Normal Bowel Sounds, Soft, Guarding, Tender. No: Distended, Mass, Hepatomegaly Course - Orders/Labs/Meds Orders: Active Orders 24 hr Category Date Time Status Ketorolac [Toradol] Med 06/06/19 22:29 Once 60 mg IM ONETIME ONE Departure - Departure Time of Disposition: 22:32 Disposition: Home, Self-Care 01 Condition: Good Clinical Impression: Abdominal pain - Discharge Information Referrals: Michael Mas MD [Primary Care Provider] - - Problem List & Annotations (1) S/P laparoscopic cholecystectomy SNOMED Code(s): 747325790, 46221701, [id number] Code(s): Z90.49 - ACQUIRED ABSENCE OF OTHER SPECIFIED PARTS OF DIGESTIVE TRACT Status: Acute Current Visit: Yes - Problem List Review Problem List Initiated/Reviewed/Updated: Yes - My Orders Last 24 Hours: My Active Orders 06/06/19 22:29 Ketorolac [Toradol] 60 mg IM ONETIME ONE - Assessment/Plan Last 24 Hours: My Active Orders 06/06/19 22:29 Ketorolac [Toradol] 60 mg IM ONETIME ONE Plan: Toradol 60 mg IM. Percocet at home. Return PRN
[2019-06-07 04:25] VITALS: BP 160/80; PULSE 86
== END 2019-06-06 23:00 | disposition home or self-care (01) ==
LOC: FB.ED 22:10
DX: G89.18 Other acute postprocedural pain (principal); R10.9 Unspecified abdominal pain; I10 Essential (primary) hypertension; J44.9 Chronic obstructive pulmonary disease, unspecified; K21.9 Gastro-esophageal reflux disease without esophagitis; E11.9 Type 2 diabetes mellitus without complications; F41.9 Anxiety disorder, unspecified; F32.9 Major depressive disorder, single episode, unspecified; E03.9 Hypothyroidism, unspecified; Z90.49 Acquired absence of other specified parts of digestive tract; Z88.8 Allergy status to other drugs, medicaments and biological substances; Z88.5 Allergy status to narcotic agent; Z79.899 Other long term (current) drug therapy; Z79.82 Long term (current) use of aspirin; Z79.890 Hormone replacement therapy; Z79.84 Long term (current) use of oral hypoglycemic drugs; Z79.51 Long term (current) use of inhaled steroids; Z85.038 Personal history of other malignant neoplasm of large intestine
CPT/HCPCS: 96372; 99283; A9270; J1885

== ENCOUNTER 2020-04-05 11:10 | Emergency (ER) | payer MEDICARE, MEDICAID ==
[2020-04-05] MEDS ORDERED: Ondansetron 4 MG/2 ML SDV IVPUSH ONE ×2 (11:49→15:54)
[2020-04-05] MEDS ORDERED: Sodium Chloride 0.9% 1,000 ML IV SCH ×2 (12:00→13:45)
[2020-04-05] MEDS ORDERED: Atropine/Diphenoxylate 0.025-2.5 MG Tab PO ONE (12:02)
--- NOTE | 2020-04-05 14:07 | EDM.PDOC ---
ED HPI GENERAL MEDICAL PROBLEM - General Chief Complaint: Gastrointestinal Problem Stated Complaint: VOMITING Time Seen by Provider: 04/05/20 14:00 Source of Information: Reports: Patient History Limitations: Reports: No Limitations - History of Present Illness INITIAL COMMENTS - FREE TEXT/NARRATIVE: Patient presented to the ED because of N/V/D x 1 days. She has persistent N/V and couldn't keep anything down. Her stool is watery with cramping pain. there is no fever/chills, cough and cold. Abdomen Pain Score (Numeric/FACES): 3 - Related Data Allergies Allergy/AdvReac Type Severity Reaction Status Date / Time carbamazepine [From Tegretol] Allergy Bronchospas Verified 04/06/20 14:56 ms phenytoin sodium Allergy Rash Verified 04/06/20 14:56 [From Dilantin] phenytoin sodium extended Allergy Rash Verified 04/06/20 14:56 [From Dilantin] alprazolam [From Xanax] AdvReac Hallucinati Verified 04/06/20 14:56 ons hydromorphone HCl AdvReac Hallucinati Verified 04/06/20 14:56 [From Dilaudid] ons lorazepam [From Ativan] AdvReac Cannot Verified 04/06/20 14:56 Remember prednisone AdvReac Depression Verified 04/06/20 14:56 Home Meds: Home Meds Gabapentin [Neurontin] 300 mg PO DAILY 06/28/13 [History] Albuterol Sulfate [Proair Hfa] 2 puff PO QID PRN 09/14/14 [History] Levothyroxine [Synthroid] 100 mcg PO DAILY 09/16/14 [History] Acetaminophen [Tylenol Extra Strength] 1,000 mg PO Q6H PRN 05/04/16 [History] PARoxetine HCl [Paxil] 40 mg PO DAILY 11/19/16 [History] Fluticasone Propion/Salmeterol [Advair 250-50 Diskus] 1 puff INH BID PRN 12/13/16 [History] tiZANidine 2 mg PO BEDTIME 12/13/16 [History] Esomeprazole Magnesium [Nexium] 40 mg PO DAILY 01/09/17 [History] Gabapentin [Neurontin] 900 mg PO BEDTIME 01/09/17 [History] .Ozempic 0.5 mg SQ WE 04/17/19 [History] Lisinopril 20 mg PO DAILY 04/17/19 [History] Ondansetron [Zofran ODT] 4 mg PO Q6H PRN #12 tab.dis 04/17/19 [Rx] Potassium 500 mg PO DAILY 04/17/19 [History] glipiZIDE [Glipizide ER] 10 mg PO DAILY 04/17/19 [History] Aspirin [Halfprin] 81 mg PO ASDIRECTED 06/06/19 [History] Diphenoxylate HCl/Atropine [Lomotil Tablet] 2 each PO Q6H PRN #10 tablet 04/05/20 [Rx] Ondansetron [Zofran ODT] 4 mg PO Q4H PRN #7 tab.dis 04/05/20 [Rx] Past Medical History HEENT History: Reports: Sinusitis Cardiovascular History: Reports: Blood Clots/VTE/DVT, Hypertension Other Cardiovascular History: not taking any anti-hypertensive meds anymore Respiratory History: Reports: Asthma, COPD Gastrointestinal History: Reports: Colon Polyp, GERD, Other (See Below) Other Gastrointestinal History: currently on TPN, occasional constipation, enterocutaneous fistula anterior abdomen Genitourinary History: Reports: None 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: , Other (See Below) Other PAPERBOARD BOX MAKER History: ovarian cyst Musculoskeletal History: Reports: Back Pain, Chronic, Other (See Below) Other Musculoskeletal History: fx elbow Neurological History: Reports: Brain Injury, Concussion, Head Trauma, Neuropathy, Peripheral Other Neuro History: has bulging disc in neck, Psychiatric History: Reports: Anxiety, Depression Endocrine/Metabolic History: Reports: Diabetes, Type II, Hypothyroidism Hematologic History: Reports: None Oncologic (Cancer) History: Reports: Colon Other Oncologic History: pre-cervical CA Dermatologic History: Reports: Eczema, Psoriasis - Infectious Disease History Infectious Disease History: Reports: Measles, Mumps Other Infectious Disease History: Epstine bar, - Past Surgical History HEENT Surgical History: Reports: Naso-Sinus Surgery Respiratory Surgical History: Reports: None GI Surgical History: Reports: Colon, Colonoscopy, EGD, Hernia, Abdominal, Lysis of Adhesions Other GI Surgeries/Procedures: hx of colon cancer; had colon surgery, Female Surgical History: Reports: Section Neurological Surgical History: Reports: None Dermatological Surgical History: Reports: None Social & Family History - Family History Family Medical History: Noncontributory - Caffeine Use Caffeine Use: Reports: Coffee, Soda Other Caffeine Use: daily ED ROS GENERAL - Review of Systems Review Of Systems: See Below Constitutional: Reports: Chills. Denies: Fever HEENT: Reports: No Symptoms Respiratory: Reports: No Symptoms Cardiovascular: Reports: No Symptoms Endocrine: Reports: No Symptoms GI/Abdominal: Reports: Diarrhea, Nausea, Vomiting : Reports: No Symptoms Musculoskeletal: Reports: No Symptoms Skin: Reports: No Symptoms ED EXAM, GI/ABD - Physical Exam Exam: See Below Exam Limited By: No Limitations General Appearance: Alert, No Apparent Distress Ears: Normal External Exam Nose: Normal Inspection Head: Atraumatic, Normocephalic Neck: Normal Inspection, Supple, Non-Tender Respiratory/Chest: No Respiratory Distress, Lungs Clear, Normal Breath Sounds Cardiovascular: Normal Peripheral Pulses, Regular Rate, Rhythm, No Edema, No Gallop GI/Abdominal Exam: Soft, Non-Tender, No Organomegaly, Other (hyperactive bowel sound) Back Exam: Normal Inspection, Full Range of Motion Extremities: Normal Inspection, Normal Range of Motion Neurological: Alert, Oriented, CN II-XII Intact, Normal Cognition Psychiatric: Normal Affect Course - Vital Signs Text/Narrative:: Labs/EKG was discussed with patient NS 2 L bolus Zofran 4 mg IV x1 Lomotil 2 po x1 Last Recorded V/S: Last Vital Signs Temp 36.5 C 04/05/20 11:10 Pulse 84 04/05/20 18:30 Resp 16 04/05/20 18:30 BP 101/59 L 04/05/20 18:30 Pulse Ox 100 04/05/20 18:30 - Orders/Labs/Meds Labs: Laboratory Tests 04/05/20 04/05/20 04/05/20 Range/Units 12:07 12:07 12:07 WBC 16.1 H (4.5-12.0) X10-3/uL RBC 4.62 (3.23-5.20) x10(6)uL Hgb 14.2 (11.5-15.5) g/dL Hct 42.7 (30.0-51.3) % MCV 92.4 (80-96) fL MCH 30.8 (27.7-33.6) pg MCHC 33.3 (32.2-35.4) g/dL RDW 13.6 (11.5-15.5) % Plt Count 345 (125-369) X10(3)uL MPV 6.9 L (7.4-10.4) fL Neut % (Auto) 87.9 H (46-82) % Lymph % (Auto) 2.1 L (13-37) % [place] % (Auto) 6.6 (4-12) % Eos % (Auto) 1 (1.0-5.0) % Baso % (Auto) 3 H (0-2) % Neut # (Auto) 14.2 H (1.6-8.3) # Lymph # (Auto) 0.3 L (0.6-5.0) # [place] # (Auto) 1.1 (0.0-1.3) # Eos # (Auto) 0.1 (0.0-0.8) # Baso # (Auto) 0.4 H (0.0-0.2) # Sodium 140 (135-145) mmol/L Potassium 3.7 (3.5-5.3) mmol/L Chloride 99 L D (100-110) mmol/L Carbon Dioxide 25 (21-32) mmol/L BUN 21 H (7-18) mg/dL Creatinine 2.0 H* (0.55-1.02) mg/dL Est Cr Clr Drug Dosing TNP Estimated GFR (MDRD) 26 L (>60) BUN/Creatinine Ratio 10.5 (9-20) Glucose 158 H (80-116) mg/dL Calcium 10.7 H (8.6-10.2) mg/dL Total Bilirubin 0.9 (0.1-1.3) mg/dL AST 19 D (5-25) IU/L ALT 21 D (12-36) U/L Alkaline Phosphatase 96 (56-112) IU/L Troponin I 8.8 (4.0-60.3) pg/mL Total Protein 8.4 H (6.0-8.0) g/dL Albumin 4.0 (3.5-5.2) g/dL Globulin 4.4 g/dL Albumin/Globulin Ratio 0.9 Urine Color (YELLOW) Urine Appearance (CLEAR) Urine pH (5.0-6.5) Ur Specific Wilson (1.010-1.025) Urine Protein (NEGATIVE) mg/dL Urine Glucose (UA) (NORMAL) mg/dL Urine Ketones (NEGATIVE) mg/dL Urine Occult Blood (NEGATIVE) Urine Nitrite (NEGATIVE) Urine Bilirubin (NEGATIVE) Urine Urobilinogen (NEGATIVE) mg/dL Ur Leukocyte Esterase (NEGATIVE) Urine RBC (0-5) Urine WBC (0-5) Ur Squamous Epith Cells (NS,R,O) Urine Bacteria (NS) Urine Mucus (NS) 04/05/20 Range/Units 15:33 WBC (4.5-12.0) X10-3/uL RBC (3.23-5.20) x10(6)uL Hgb (11.5-15.5) g/dL Hct (30.0-51.3) % MCV (80-96) fL MCH (27.7-33.6) pg MCHC (32.2-35.4) g/dL RDW (11.5-15.5) % Plt Count (125-369) X10(3)uL MPV (7.4-10.4) fL Neut % (Auto) (46-82) % Lymph % (Auto) (13-37) % [place] % (Auto) (4-12) % Eos % (Auto) (1.0-5.0) % Baso % (Auto) (0-2) % Neut # (Auto) (1.6-8.3) # Lymph # (Auto) (0.6-5.0) # [place] # (Auto) (0.0-1.3) # Eos # (Auto) (0.0-0.8) # Baso # (Auto) (0.0-0.2) # Sodium (135-145) mmol/L Potassium (3.5-5.3) mmol/L Chloride (100-110) mmol/L Carbon Dioxide (21-32) mmol/L BUN (7-18) mg/dL Creatinine (0.55-1.02) mg/dL Est Cr Clr Drug Dosing Estimated GFR (MDRD) (>60) BUN/Creatinine Ratio (9-20) Glucose (80-116) mg/dL Calcium (8.6-10.2) mg/dL Total Bilirubin (0.1-1.3) mg/dL AST (5-25) IU/L ALT (12-36) U/L Alkaline Phosphatase (56-112) IU/L Troponin I (4.0-60.3) pg/mL Total Protein (6.0-8.0) g/dL Albumin (3.5-5.2) g/dL Globulin g/dL Albumin/Globulin Ratio Urine Color Yellow (YELLOW) Urine Appearance Slightly cloudy (CLEAR) Urine pH 5.0 (5.0-6.5) Ur Specific [place] 1.015 (1.010-1.025) Urine Protein 30 H (NEGATIVE) mg/dL Urine Glucose (UA) Normal (NORMAL) mg/dL Urine Ketones 15 H (NEGATIVE) mg/dL Urine Occult Blood Negative (NEGATIVE) Urine Nitrite Negative (NEGATIVE) Urine Bilirubin Small H (NEGATIVE) Urine Urobilinogen 1 H (NEGATIVE) mg/dL Ur Leukocyte Esterase Large H (NEGATIVE) Urine RBC 0-5 (0-5) Urine WBC 10-20 H (0-5) Ur Squamous Epith Cells Few H (NS,R,O) Urine Bacteria Moderate H (NS) Urine Mucus Moderate H (NS) Meds: Medications Discontinued Medications Generic Name Dose Route Start Last Admin Trade Name Freq PRN Reason Stop Dose Admin Diphenoxylate HCl/Atropine 2 tab 04/05/20 12:02 04/05/20 12:40 Lomotil 0.025-2.5 Mg PO 04/05/20 12:03 2 tab ONETIME ONE Administration Sodium Chloride 1,000 mls @ 999 mls/hr 04/05/20 12:00 04/05/20 12:41 Normal Saline IV 999 mls/hr ASDIRECTED SOCORRO Administration Sodium Chloride 1,000 mls @ 999 mls/hr 04/05/20 13:45 04/05/20 15:00 Normal Saline IV 999 mls/hr ASDIRECTED SOCORRO Administration Ertapenem 1 gm/ Sodium 50 mls @ 100 mls/hr 04/05/20 16:26 04/05/20 17:51 Chloride IV 04/05/20 16:55 100 mls/hr NOW STA Administration Ondansetron HCl 4 mg 04/05/20 11:49 04/05/20 12:41 Zofran IVPUSH 04/05/20 11:50 4 mg ONETIME ONE Administration Ondansetron HCl 4 mg 04/05/20 15:54 04/05/20 16:16 Zofran IVPUSH 04/05/20 15:55 4 mg ONETIME ONE Administration Tramadol HCl 50 mg 04/05/20 18:17 04/05/20 18:24 Ultram PO 04/05/20 18:18 50 mg ONETIME ONE Administration Departure - Departure Time of Disposition: 16:00 Disposition: Home, Self-Care 01 Condition: Good Clinical Impression: Gastroenteritis, Dehydration, KARLEY (acute kidney injury), UTI (urinary tract infection) - Discharge Information Prescriptions: Diphenoxylate HCl/Atropine [Lomotil Tablet] 2 each PO Q6H PRN #10 tablet PRN Reason: Diarrhea Ondansetron [Zofran ODT] 4 mg PO Q4H PRN #7 tab.dis PRN Reason: Nausea Instructions: Viral Gastroenteritis, Adult, [id number], Dehydration, Adult, [id number], Urinary Tract Infection, Adult Referrals: Michael Mas MD [Primary Care Provider] - Forms: ED Department Discharge Additional Instructions: Please read discharge instructions on UTI, dehydration, and gastroenteritis Frequent hand washing Increase oral fluids at least 2-3 liters a day Return back 04/06 and 04/07 pm for IV antibiotic treatment(ertapenem 1 gm IV x 3days) Sepsis Event Note (ED) - Evaluation Sepsis Screening Result: No Definite Risk
[2020-04-05] MEDS ORDERED: Ertapenem 1 GM in Sodium Chloride 0.9% 50 ML IV STA (16:26)
[2020-04-05] MEDS ORDERED: traMADol 50 MG Tab PO ONE (18:17)
[2020-04-05 18:31] VITALS: BP 101/59; PULSE 84
== END 2020-04-05 18:33 | disposition home or self-care (01) ==
LOC: FB.ED 11:10
DX: K52.9 Noninfective gastroenteritis and colitis, unspecified (principal); E86.0 Dehydration; N17.9 Acute kidney failure, unspecified; I12.9 Hypertensive chronic kidney disease with stage 1 through stage 4 chronic kidney disease, or unspecified chronic kidney disease; N18.9 Chronic kidney disease, unspecified; N39.0 Urinary tract infection, site not specified; E03.9 Hypothyroidism, unspecified; E10.9 Type 1 diabetes mellitus without complications; F41.9 Anxiety disorder, unspecified; F32.9 Major depressive disorder, single episode, unspecified; K21.9 Gastro-esophageal reflux disease without esophagitis; J44.9 Chronic obstructive pulmonary disease, unspecified; Z88.8 Allergy status to other drugs, medicaments and biological substances; Z88.5 Allergy status to narcotic agent; Z79.899 Other long term (current) drug therapy; Z79.82 Long term (current) use of aspirin
CPT/HCPCS: 36415; 80053; 81001; 84484; 85025; 87086; 87088; 87186; 93005; 96361; 96365; 96375; 96376; 99284; A9270; J1335; J2405; J7030; J7050

== ENCOUNTER 2021-01-18 18:20 | Emergency (ER) | payer MEDICARE, MEDICAID ==
[2021-01-18] MEDS ORDERED: Sodium Chloride 0.9% 10 ML Syringe FLUSH PRN (19:10)
[2021-01-18] MEDS ORDERED: Ondansetron 4 MG/2 ML SDV IVPUSH ONE (19:10)
[2021-01-18] MEDS ORDERED: Sodium Chloride 0.9% 1,000 ML IV SCH (19:15)
--- NOTE | 2021-01-18 20:03 | EDM.PDOC ---
ED HPI GENERAL MEDICAL PROBLEM - General Chief Complaint: Gastrointestinal Problem Stated Complaint: VOMITING Time Seen by Provider: 01/18/21 20:00 Source of Information: Reports: Patient History Limitations: Reports: No Limitations - History of Present Illness INITIAL COMMENTS - FREE TEXT/NARRATIVE: Hien complains of vomiting x 1 days. she was in the sun most of yesterday and is questioning possibility of heat exhaustion. She has had intermittent diarrhea and constipation. Recent Upper GI endoscopy was negative.Next month she will have C scope. She denies any chest pain,SOB,fever or any other systemic symptoms. - Related Data Allergies Allergy/AdvReac Type Severity Reaction Status Date / Time carbamazepine [From Tegretol] Allergy Bronchospas Verified 04/06/20 14:56 ms phenytoin sodium Allergy Rash Verified 04/06/20 14:56 [From Dilantin] phenytoin sodium extended Allergy Rash Verified 04/06/20 14:56 [From Dilantin] alprazolam [From Xanax] AdvReac Hallucinati Verified 04/06/20 14:56 ons hydromorphone HCl AdvReac Hallucinati Verified 04/06/20 14:56 [From Dilaudid] ons lorazepam [From Ativan] AdvReac Cannot Verified 04/06/20 14:56 Remember prednisone AdvReac Depression Verified 04/06/20 14:56 Home Meds: Home Meds Gabapentin [Neurontin] 300 mg PO DAILY 06/28/13 [History] Albuterol Sulfate [Proair Hfa] 2 puff PO QID PRN 09/14/14 [History] Levothyroxine [Synthroid] 100 mcg PO DAILY 09/16/14 [History] Acetaminophen [Tylenol Extra Strength] 1,000 mg PO Q6H PRN 05/04/16 [History] PARoxetine HCl [Paxil] 40 mg PO DAILY 11/19/16 [History] Fluticasone Propion/Salmeterol [Advair 250-50 Diskus] 1 puff INH BID PRN 12/13/16 [History] tiZANidine 2 mg PO BEDTIME 12/13/16 [History] Esomeprazole Magnesium [Nexium] 40 mg PO DAILY 01/09/17 [History] Gabapentin [Neurontin] 900 mg PO BEDTIME 01/09/17 [History] .Ozempic 0.5 mg SQ WE 04/17/19 [History] Lisinopril 20 mg PO DAILY 04/17/19 [History] Ondansetron [Zofran ODT] 4 mg PO Q6H PRN #12 tab.dis 04/17/19 [Rx] Potassium 500 mg PO DAILY 04/17/19 [History] glipiZIDE [Glipizide ER] 10 mg PO DAILY 04/17/19 [History] Aspirin [Halfprin] 81 mg PO ASDIRECTED 06/06/19 [History] Diphenoxylate HCl/Atropine [Lomotil Tablet] 2 each PO Q6H PRN #10 tablet 04/05/20 [Rx] Ondansetron [Zofran ODT] 4 mg PO Q4H PRN #7 tab.dis 04/05/20 [Rx] Past Medical History HEENT History: Reports: Sinusitis Cardiovascular History: Reports: Blood Clots/VTE/DVT, Hypertension Other Cardiovascular History: not taking any anti-hypertensive meds anymore Respiratory History: Reports: Asthma, COPD Gastrointestinal History: Reports: Colon Polyp, GERD, Other (See Below) Other Gastrointestinal History: currently on TPN, occasional constipation, enterocutaneous fistula anterior abdomen Genitourinary History: Reports: None 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: , Other (See Below) Other DOG BEAUTICIAN History: ovarian cyst Musculoskeletal History: Reports: Back Pain, Chronic, Other (See Below) Other Musculoskeletal History: fx elbow Neurological History: Reports: Brain Injury, Concussion, Head Trauma, Neuropathy, Peripheral Other Neuro History: has bulging disc in neck, Psychiatric History: Reports: Anxiety, Depression Endocrine/Metabolic History: Reports: Diabetes, Type II, Hypothyroidism Hematologic History: Reports: None Oncologic (Cancer) History: Reports: Colon Other Oncologic History: pre-cervical CA Dermatologic History: Reports: Eczema, Psoriasis - Infectious Disease History Infectious Disease History: Reports: Measles, Mumps Other Infectious Disease History: Epstine bar, - Past Surgical History HEENT Surgical History: Reports: Naso-Sinus Surgery Other HEENT Surgeries/Procedures: All teeth extracted surgically. Cardiovascular Surgical History: Reports: None Respiratory Surgical History: Reports: None GI Surgical History: Reports: Colon, Colonoscopy, EGD, Hernia, Abdominal, Lysis of Adhesions Other GI Surgeries/Procedures: hx of colon cancer; had colon surgery, Female Surgical History: Reports: Section Other Female Surgeries/Procedures: X 2. Neurological Surgical History: Reports: None Oncologic Surgical History: Reports: Other (See Below) Other Oncologic Surgeries/Procedures: colon CA Dermatological Surgical History: Reports: None Social & Family History - Family History Family Medical History: No Pertinent Family History - Tobacco Use Tobacco Use Status *Q: Former Tobacco User Used Tobacco, but Quit: Yes Month/Year Tobacco Last Used: 07/2015 - Caffeine Use Caffeine Use: Reports: Coffee, Soda Other Caffeine Use: daily - Recreational Drug Use Recreational Drug Use: No ED ROS GENERAL - Review of Systems Review Of Systems: Comprehensive ROS is negative, except as noted in HPI. ED EXAM, GI/ABD - Physical Exam Exam: See Below Exam Limited By: No Limitations General Appearance: Alert, WD/WN, No Apparent Distress Nose: Normal Inspection Throat/Mouth: Normal Inspection Head: Atraumatic Neck: Normal Inspection Respiratory/Chest: No Respiratory Distress, Lungs Clear Cardiovascular: Normal Peripheral Pulses GI/Abdominal Exam: Normal Bowel Sounds, Soft Course - Vital Signs Last Recorded V/S: Last Vital Signs Temp 98.5 F 01/18/21 18:20 Pulse 89 01/18/21 18:20 Resp 20 01/18/21 18:20 BP 163/104 H 01/18/21 18:20 Pulse Ox 98 01/18/21 18:20 - Orders/Labs/Meds Orders: Active Orders 24 hr Category Date Time Status CORONAVIRUS COVID-19 KULDEEP [MOLEC] Urgent Lab 01/18/21 19:11 Ordered Sodium Chloride 0.9% [Normal Saline] 1,000 ml Med 01/18/21 19:15 Active IV ASDIRECTED Sodium Chloride 0.9% [Saline Flush] Med 01/18/21 19:10 Active 10 ml FLUSH ASDIRECTED PRN Peripheral IV Insertion Adult [OM.PC] Stat Oth 01/18/21 19:10 Ordered Medication Orders Sodium Chloride (Normal Saline) 1,000 mls @ 999 mls/hr IV ASDIRECTED SOCORRO Last Admin: 01/18/21 19:31 Dose: 999 mls/hr Documented by: [id number] Sodium Chloride (Sodium Chloride 0.9% 10 Ml Syringe) 10 ml FLUSH ASDIRECTED PRN PRN Reason: Keep Vein Open Last Admin: 01/18/21 19:31 Dose: 10 ml Documented by: POLLY Labs: Laboratory Tests 01/18/21 01/18/21 Range/Units 19:25 19:25 WBC 4.3 (3.0-10.3) x10-3/uL RBC 4.28 (3.60-5.20) x10(6)uL Hgb 13.2 (11.4-15.5) g/dL Hct 39.7 (34.2-48.2) % MCV 92.7 (76.7-100.5) fL MCH 30.8 (23.9-33.9) pg MCHC 33.2 (31.9-34.8) g/dL RDW 14.3 (12.3-16.5) % Plt Count 344 (151-488) x10(3)uL MPV 6.6 L (7.1-12.4) fL Neut % (Auto) 73.3 (30.8-76.2) % Lymph % (Auto) 12.7 L (18.4-52.1) % [place] % (Auto) 10.4 (4.4-15.7) % Eos % (Auto) 2.5 (0.6-8.1) % Baso % (Auto) 1.1 (0.2-1.5) % Neut # (Auto) 3.2 (1.5-6.3) x10-3/uL Lymph # (Auto) 0.6 L (1.0-4.4) x10-3/uL [place] # (Auto) 0.5 (0.3-1.0) x10-3/uL Eos # (Auto) 0.1 (0.0-0.8) x10-3/uL Baso # (Auto) 0.0 (0.0-0.1) x10-3/uL Sodium 143 (135-145) mmol/L Potassium 3.5 (3.5-5.3) mmol/L Chloride 102 D (100-110) mmol/L Carbon Dioxide 30 (21-32) mmol/L BUN 14 (7-18) mg/dL Creatinine 1.2 H (0.55-1.02) mg/dL Est Cr Clr Drug Dosing 46.67 mL/min Estimated GFR (MDRD) 46 L (>60) BUN/Creatinine Ratio 11.7 (9-20) Glucose 120 H (80-116) mg/dL Calcium 9.6 (8.6-10.2) mg/dL Total Bilirubin 0.7 (0.1-1.3) mg/dL AST 18 (5-25) IU/L ALT 19 (12-36) U/L Alkaline Phosphatase 73 (56-112) IU/L Total Protein 7.6 (6.0-8.0) g/dL Albumin 3.6 (3.2-4.6) g/dL Globulin 4.0 g/dL Albumin/Globulin Ratio 0.9 Meds: Medications Generic Name Dose Route Start Last Admin Trade Name Freq PRN Reason Stop Dose Admin Sodium Chloride 1,000 mls @ 999 mls/hr 01/18/21 19:15 01/18/21 19:31 Normal Saline IV 999 mls/hr ASDIRECTED SOCORRO Administration Sodium Chloride 10 ml 01/18/21 19:10 01/18/21 19:31 Sodium Chloride 0.9% 10 Ml Syringe FLUSH 10 ml ASDIRECTED PRN Administration Keep Vein Open Discontinued Medications Generic Name Dose Route Start Last Admin Trade Name Freq PRN Reason Stop Dose Admin Ondansetron HCl 8 mg 01/18/21 19:10 01/18/21 19:31 Ondansetron 4 Mg/2 Ml Sdv IVPUSH 01/18/21 19:11 8 mg ONETIME ONE Administration Departure - Departure Time of Disposition: 20:16 Disposition: Home, Self-Care 01 Condition: Good Clinical Impression: Vomiting Qualifiers: Vomiting type: unspecified Vomiting Intractability: intractable - Discharge Information Instructions: Vomiting, Adult Referrals: Michael Mas MD [Primary Care Provider] - (PRN) Forms: ED Department Discharge Additional Instructions: Zofran 4m gq6h ODT prn Sepsis Event Note (ED) - Evaluation Sepsis Screening Result: No Definite Risk - Focused Exam Vital Signs: Vital Signs Temp Pulse Resp BP Pulse Ox 01/18/21 18:20 98.5 F 89 20 163/104 H 98 - Problem List & Annotations (1) Vomiting SNOMED Code(s): 010255539 Code(s): R11.10 - VOMITING, UNSPECIFIED Status: Acute Current Visit: Yes Qualifiers: Vomiting type: unspecified Vomiting Intractability: intractable - Problem List Review Problem List Initiated/Reviewed/Updated: Yes - My Orders Last 24 Hours: My Active Orders 01/18/21 19:10 Sodium Chloride 0.9% [Saline Flush] 10 ml FLUSH ASDIRECTED PRN Peripheral IV Insertion Adult [OM.PC] Stat 01/18/21 19:11 CORONAVIRUS COVID-19 KULDEEP [MOLEC] Urgent 01/18/21 19:15 Sodium Chloride 0.9% [Normal Saline] 1,000 ml IV ASDIRECTED - Assessment/Plan Last 24 Hours: My Active Orders 01/18/21 19:10 Sodium Chloride 0.9% [Saline Flush] 10 ml FLUSH ASDIRECTED PRN Peripheral IV Insertion Adult [OM.PC] Stat 01/18/21 19:11 CORONAVIRUS COVID-19 KULDEEP [MOLEC] Urgent 01/18/21 19:15 Sodium Chloride 0.9% [Normal Saline] 1,000 ml IV ASDIRECTED Assessment:: I have given her NS and Zofran. Will DC home on Zofran. Plan: She was sent home after labs,with Sunny POSADA
[2021-01-18] MEDS ORDERED: Ondansetron 4 MG Tab.DIS PO ONE (20:22)
[2021-01-18 21:48] VITALS: BP 155/89; PULSE 77
== END 2021-01-18 20:45 | disposition home or self-care (01) ==
LOC: FB.ED 18:20
DX: R11.10 Vomiting, unspecified (principal); J44.9 Chronic obstructive pulmonary disease, unspecified; I10 Essential (primary) hypertension; E11.9 Type 2 diabetes mellitus without complications; E03.9 Hypothyroidism, unspecified; Z87.891 Personal history of nicotine dependence; Z79.82 Long term (current) use of aspirin; Z79.899 Other long term (current) drug therapy; Z88.5 Allergy status to narcotic agent; Z88.8 Allergy status to other drugs, medicaments and biological substances
CPT/HCPCS: 36415; 80053; 85025; 96374; 99284; A9270; J2405; J7030

== ENCOUNTER 2021-04-05 19:36 | Emergency (ER) | payer MEDICARE, MEDICAID ==
[2021-04-05 19:51] VITALS: PULSE 86
[2021-04-05] MEDS ORDERED: hydrOXYzine HCl 50 MG/ML SDV IM ONE (19:51)
--- NOTE | 2021-04-05 19:57 | EDM.PDOC ---
ED HPI GENERAL MEDICAL PROBLEM - General Chief Complaint: General Stated Complaint: VOMITING, DEHYDRATED Time Seen by Provider: 04/05/21 19:52 Source of Information: Reports: Patient History Limitations: Reports: No Limitations - History of Present Illness INITIAL COMMENTS - FREE TEXT/NARRATIVE: Hien complains of sudden onset vomiting for 1 hr. Almost 10 times in 1 hr. No abdominal pain ,no diarrhea. Has constipation but treated successfully with Miralax. Recent Upper and Lower G I negative. She had a similar presentation on December - Related Data Allergies Allergy/AdvReac Type Severity Reaction Status Date / Time carbamazepine [From Tegretol] Allergy Bronchospas Verified 04/06/20 14:56 ms phenytoin sodium Allergy Rash Verified 04/06/20 14:56 [From Dilantin] phenytoin sodium extended Allergy Rash Verified 04/06/20 14:56 [From Dilantin] alprazolam [From Xanax] AdvReac Hallucinati Verified 04/06/20 14:56 ons hydromorphone HCl AdvReac Hallucinati Verified 04/06/20 14:56 [From Dilaudid] ons lorazepam [From Ativan] AdvReac Cannot Verified 04/06/20 14:56 Remember prednisone AdvReac Depression Verified 04/06/20 14:56 Home Meds: Home Meds Gabapentin [Neurontin] 300 mg PO DAILY 06/28/13 [History] Albuterol Sulfate [Proair Hfa] 2 puff PO QID PRN 09/14/14 [History] Levothyroxine [Synthroid] 100 mcg PO DAILY 09/16/14 [History] Acetaminophen [Tylenol Extra Strength] 1,000 mg PO Q6H PRN 05/04/16 [History] PARoxetine HCl [Paxil] 40 mg PO DAILY 11/19/16 [History] Fluticasone Propion/Salmeterol [Advair 250-50 Diskus] 1 puff INH BID PRN 12/13/16 [History] tiZANidine 2 mg PO BEDTIME 12/13/16 [History] Gabapentin [Neurontin] 900 mg PO BEDTIME 01/09/17 [History] .Ozempic 0.5 mg SQ WE 04/17/19 [History] Lisinopril 20 mg PO DAILY 04/17/19 [History] Ondansetron [Zofran ODT] 4 mg PO Q6H PRN #12 tab.dis 04/17/19 [Rx] Potassium 500 mg PO DAILY 04/17/19 [History] Aspirin [Halfprin] 81 mg PO ASDIRECTED 06/06/19 [History] Ondansetron [Zofran ODT] 4 mg PO Q4H PRN #7 tab.dis 04/05/20 [Rx] Promethazine [Phenadoz] 25 mg RECTAL TID PRN #15 supp 04/05/21 [Rx] Past Medical History HEENT History: Reports: Sinusitis Cardiovascular History: Reports: Blood Clots/VTE/DVT, Hypertension Other Cardiovascular History: not taking any anti-hypertensive meds anymore Respiratory History: Reports: Asthma, COPD Gastrointestinal History: Reports: Colon Polyp, GERD, Other (See Below) Other Gastrointestinal History: currently on TPN, occasional constipation, enterocutaneous fistula anterior abdomen Genitourinary History: Reports: None [employer]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: , Other (See Below) 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 Musculoskeletal History: Reports: Back Pain, Chronic, Other (See Below) Other Musculoskeletal History: fx elbow Neurological History: Reports: Brain Injury, Concussion, Head Trauma, Neuropathy, Peripheral Other Neuro History: has bulging disc in neck, Psychiatric History: Reports: Anxiety, Depression Endocrine/Metabolic History: Reports: Diabetes, Type II, Hypothyroidism Hematologic History: Reports: None Oncologic (Cancer) History: Reports: Colon Other Oncologic History: pre-cervical CA Dermatologic History: Reports: Eczema, Psoriasis - Infectious Disease History Infectious Disease History: Reports: Measles, Mumps Other Infectious Disease History: Epstine bar, - Past Surgical History HEENT Surgical History: Reports: Naso-Sinus Surgery Other HEENT Surgeries/Procedures: All teeth extracted surgically. Cardiovascular Surgical History: Reports: None Respiratory Surgical History: Reports: None GI Surgical History: Reports: Colon, Colonoscopy, EGD, Hernia, Abdominal, Lysis of Adhesions Other GI Surgeries/Procedures: hx of colon cancer; had colon surgery, Female Surgical History: Reports: Section Other Female Surgeries/Procedures: X 2. Neurological Surgical History: Reports: None Oncologic Surgical History: Reports: Other (See Below) Other Oncologic Surgeries/Procedures: colon CA Dermatological Surgical History: Reports: None Social & Family History - Family History Family Medical History: No Pertinent Family History - Caffeine Use Caffeine Use: Reports: Coffee, Soda Other Caffeine Use: daily ED ROS GENERAL - Review of Systems Review Of Systems: Comprehensive ROS is negative, except as noted in HPI. ED EXAM, GENERAL - Physical Exam Exam: See Below Exam Limited By: No Limitations General Appearance: Alert, WD/WN, No Apparent Distress Ears: Normal External Exam Ear Exam: Bilateral Ear: Auricle Normal, Canal Normal, TM normal Nose: Normal Inspection, Normal Mucosa, No Blood Neck: Normal Inspection Respiratory/Chest: No Respiratory Distress GI/Abdominal: Normal Bowel Sounds, Soft Back Exam: Normal Inspection Course - Vital Signs Last Recorded V/S: Last Vital Signs Temp 97.7 F 04/05/21 19:48 Pulse 86 04/05/21 19:48 Resp 18 04/05/21 19:48 BP 170/96 H 04/05/21 19:48 Pulse Ox 97 04/05/21 19:48 - Orders/Labs/Meds Meds: Medications Discontinued Medications Generic Name Dose Route Start Last Admin Trade Name Freq PRN Reason Stop Dose Admin Hydroxyzine HCl 100 mg 04/05/21 19:51 Hydroxyzine Hcl 50 Mg/Ml Sdv IM 04/05/21 19:52 ONETIME ONE Departure - Departure Time of Disposition: 19:54 Disposition: Home, Self-Care 01 Clinical Impression: Vomiting - Discharge Information Instructions: Cyclic Vomiting Syndrome, Adult Referrals: Michael Mas MD [Primary Care Provider] - (1 week) Sepsis Event Note (ED) - Evaluation Sepsis Screening Result: No Definite Risk - Focused Exam Vital Signs: Vital Signs Temp Pulse Resp BP Pulse Ox 04/05/21 19:48 97.7 F 86 18 170/96 H 97 - Problem List & Annotations (1) Vomiting SNOMED Code(s): 111631425 Code(s): R11.10 - VOMITING, UNSPECIFIED Status: Acute Qualifiers: Vomiting type: cyclical vomiting syndrome unrelated to migraine Qualified Code(s): R11.15 - Cyclical vomiting syndrome unrelated to migraine - Problem List Review Problem List Initiated/Reviewed/Updated: Yes - Assessment/Plan Plan: Vistaril 100 mg IM
[2021-04-05 20:26] VITALS: BP 166/67
== END 2021-04-05 20:31 | disposition home or self-care (01) ==
LOC: FB.ED 19:36
DX: R11.10 Vomiting, unspecified (principal); I10 Essential (primary) hypertension; J44.9 Chronic obstructive pulmonary disease, unspecified; E11.42 Type 2 diabetes mellitus with diabetic polyneuropathy; E03.9 Hypothyroidism, unspecified; Z88.5 Allergy status to narcotic agent; Z88.8 Allergy status to other drugs, medicaments and biological substances; Z79.82 Long term (current) use of aspirin; Z79.899 Other long term (current) drug therapy
CPT/HCPCS: 96372; 99283; J3410

== ENCOUNTER 2022-01-07 15:38 | Emergency (ER) | payer MEDICARE, MEDICAID ==
[2022-01-07 16:30] VITALS: BP 146/85; PULSE 102
== END 2022-01-07 16:28 | disposition home or self-care (01) ==
LOC: FB.ED 15:38
DX: S16.1XXA Strain of muscle, fascia and tendon at neck level, initial encounter (principal); E11.42 Type 2 diabetes mellitus with diabetic polyneuropathy; E11.43 Type 2 diabetes mellitus with diabetic autonomic (poly)neuropathy; K31.84 Gastroparesis; E03.9 Hypothyroidism, unspecified; I10 Essential (primary) hypertension; J44.9 Chronic obstructive pulmonary disease, unspecified; Z88.8 Allergy status to other drugs, medicaments and biological substances; Z88.5 Allergy status to narcotic agent
CPT/HCPCS: 99282; 99283

== ENCOUNTER 2022-02-21 10:42 | Emergency (ER) | payer MEDICARE, MEDICAID ==
[2022-02-21 11:20] VITALS: BP 188/105; PULSE 87
[2022-02-21 12:12] LABS: ESTIMATED GFR 57 mL/min (>60)
== END 2022-02-21 12:50 | disposition home or self-care (01) ==
LOC: FB.ED 10:42
DX: E03.9 Hypothyroidism, unspecified (principal); K52.9 Noninfective gastroenteritis and colitis, unspecified; E87.6 Hypokalemia; I10 Essential (primary) hypertension; J44.9 Chronic obstructive pulmonary disease, unspecified; E11.40 Type 2 diabetes mellitus with diabetic neuropathy, unspecified; Z88.8 Allergy status to other drugs, medicaments and biological substances; Z88.5 Allergy status to narcotic agent; Z79.82 Long term (current) use of aspirin; Z79.899 Other long term (current) drug therapy
CPT/HCPCS: 36415; 80048; 84443; 85025; 99284

== ENCOUNTER 2022-02-23 14:03 | Observation (INO) | payer MEDICARE, MEDICAID ==
[2022-02-23] MEDS ORDERED: Ondansetron 4 MG/2 ML SDV IVPUSH ONE (14:37)
[2022-02-23] MEDS ORDERED: Sodium Chloride 0.9% 1,000 ML IV SCH ×2 (14:45→18:00)
[2022-02-23 15:08] LABS: ESTIMATED GFR 57 mL/min (>60)
[2022-02-23] MEDS ORDERED: Prochlorperazine 10 MG/2 ML SDV IVPUSH STA (16:58)
[2022-02-23] MEDS ORDERED: PARoxetine 20 MG Tab PO STA (17:43)
[2022-02-23] MEDS ORDERED: Ondansetron 4 MG/2 ML SDV IVPUSH PRN (18:39)
[2022-02-23] MEDS ORDERED: Atropine/Diphenoxylate 0.025-2.5 MG Tab PO PRN (18:42)
[2022-02-23] MEDS ORDERED: Prochlorperazine 10 MG/2 ML SDV IVPUSH PRN (18:43)
[2022-02-23] MEDS: NS + KCl 20mEq/L 1,000 ML IV SCH (19:43)
[2022-02-23] MEDS ORDERED: Enoxaparin 40 MG/0.4 ML Syringe SUBCUT SCH (20:00)
[2022-02-23] MEDS: Acetaminophen 325 MG Tab PO PRN (22:58)
[2022-02-24] MEDS: NS + KCl 20mEq/L 1,000 ML IV SCH ×2 (03:32→12:13)
[2022-02-24] MEDS: Acetaminophen 325 MG Tab PO PRN ×2 (03:33→07:35)
[2022-02-24 06:38] LABS: ESTIMATED GFR 64 mL/min (>60)
[2022-02-24] MEDS ORDERED: Levothyroxine 112 MCG Tab PO SCH (07:30)
[2022-02-24] MEDS ORDERED: Gabapentin 600 MG Tab PO PRN (08:10)
[2022-02-24] MEDS ORDERED: Ondansetron 4 MG Tab.DIS PO PRN (08:10)
[2022-02-24] MEDS ORDERED: Albuterol 8 GM Inhaler INH PRN (08:10)
[2022-02-24] MEDS ORDERED: Carboxymethylcellulose Sodium 0.5% Ophth Soln 15 ML Bottle EYEBOTH PRN (08:10)
[2022-02-24] MEDS ORDERED: Acetaminophen 500 MG Tab PO PRN (08:10)
[2022-02-24] MEDS ORDERED: ONDANSETRON 4 MG PO PRN (08:10)
[2022-02-24] MEDS ORDERED: Formoterol/Mometasone 200-5 MCG 8.8 GM Inhaler IH PRN (08:10)
[2022-02-24] MEDS ORDERED: Atropine/Diphenoxylate 0.025-2.5 MG Tab PO SCH (08:15)
[2022-02-24] MEDS ORDERED: Potassium Chloride 20 MEQ Tab.ER PO SCH (09:00)
[2022-02-24] MEDS ORDERED: Mirabegron 25 MG Tab Extended Release PO SCH (09:00)
[2022-02-24] MEDS ORDERED: Cholecalciferol (Vitamin D3) 25 MCG Tab PO SCH (09:00)
[2022-02-24] MEDS ORDERED: PARoxetine 20 MG Tab PO SCH (09:00)
[2022-02-24] MEDS ORDERED: PAROXETINE HCL 40 MG PO SCH (09:00)
[2022-02-24] MEDS ORDERED: Lidocaine 4% 1 each Patch TOP PRN (09:00)
[2022-02-24] MEDS ORDERED: Lisinopril 5 MG Tab PO SCH (09:00)
[2022-02-24] MEDS ORDERED: TIZANIDINE 2 MG PO SCH (09:00)
[2022-02-24] MEDS ORDERED: Pantoprazole 40 MG Tab.CR PO SCH (09:00)
[2022-02-24] MEDS ORDERED: [UNRECOGNIZED DRUG - OTHER] PO SCH (09:00)
[2022-02-24] MEDS ORDERED: Magnesium Oxide 400 MG Tab PO SCH ×2 (09:00→14:00)
[2022-02-24] MEDS ORDERED: Gabapentin 300 MG Cap PO SCH (09:00)
[2022-02-24 10:30] VITALS: BP 147/84; PULSE 114
[2022-02-24] MEDS ORDERED: Aspirin 81 MG Tab.EC PO SCH (10:30)
[2022-02-24] MEDS ORDERED: Calcium Carbonate 500 MG Tablet PO SCH (12:30)
== END 2022-02-24 17:40 | disposition home or self-care (01) ==
LOC: FB.ED 14:03 → FB.MS 17:40 → UNDOADMOB 17:40 → FB.MS 18:30
PROVIDERS: ADMIT Family Medicine; ATTEND Family Medicine
DX: K52.9 Noninfective gastroenteritis and colitis, unspecified (principal); E83.51 Hypocalcemia; R21 Rash and other nonspecific skin eruption; E86.0 Dehydration; E11.42 Type 2 diabetes mellitus with diabetic polyneuropathy; E87.6 Hypokalemia; E03.9 Hypothyroidism, unspecified; I10 Essential (primary) hypertension; J44.9 Chronic obstructive pulmonary disease, unspecified; K21.9 Gastro-esophageal reflux disease without esophagitis; F41.9 Anxiety disorder, unspecified; F32.A Depression, unspecified; Z79.890 Hormone replacement therapy; Z79.83 Long term (current) use of bisphosphonates; Z79.899 Other long term (current) drug therapy; Z79.891 Long term (current) use of opiate analgesic; Z79.1 Long term (current) use of non-steroidal anti-inflammatories (NSAID); Z79.51 Long term (current) use of inhaled steroids; Z88.8 Allergy status to other drugs, medicaments and biological substances; Z98.890 Other specified postprocedural states; Z20.822 Contact with and (suspected) exposure to COVID-19
CPT/HCPCS: 36415; 71045; 74019; 80048; 80053; 81001; 82306; 82330; 82784; 83516; 83735; 83970; 85025; 85027; 87045; 87046; 87177; 87209; 87425; 87427; 87798; 96361; 96374; 96375; 99285; A9270; J0780; J1650; J2405; J3480; J7030; U0002; 96365; 96366; 96372; 96376; G0378

== ENCOUNTER 2022-04-02 12:53 | Inpatient (IN) | payer MEDICARE, MEDICAID ==
[2022-04-02] MEDS: Sodium Chloride 0.9% 10 ML Syringe FLUSH PRN (13:10)
[2022-04-02] MEDS ORDERED: Ondansetron 4 MG/2 ML SDV IVPUSH ONE (13:36)
[2022-04-02] MEDS ORDERED: Sodium Chloride 0.9% 1,000 ML IV ONE ×2 (13:36→15:33)
[2022-04-02 13:55] LABS: ESTIMATED GFR 24 mL/min (>60)
[2022-04-02] MEDS ORDERED: Potassium Chloride 20 MEQ Tab.ER PO ONE (15:05)
[2022-04-02] MEDS ORDERED: Magnesium Sulfate/Water 2 GM in Premix Bag 1 BAG IV ONE (15:06)
[2022-04-02] MEDS: Sodium Chloride 0.9% 1,000 ML IV SCH ×2 (15:15→23:30)
[2022-04-02] MEDS ORDERED: Lidocaine 4% 1 each Patch TOP PRN (17:17)
[2022-04-02] MEDS ORDERED: Non-Formulary Medication 1 Each (Fluticasone Propion/Salmeterol [Advair 250-50 Diskus] 1 E INH PRN (17:17)
[2022-04-02] MEDS ORDERED: Sennosides 8.6 MG Tab PO PRN (17:17)
[2022-04-02] MEDS ORDERED: Albuterol 8 GM Inhaler INH PRN (17:17)
[2022-04-02] MEDS ORDERED: Gabapentin 600 MG Tab PO PRN (17:17)
[2022-04-02] MEDS ORDERED: Carboxymethylcellulose Sodium 0.5% Ophth Soln 15 ML Bottle EYEBOTH PRN (17:17)
[2022-04-02] MEDS ORDERED: cefTRIAXone 1 GM in Sodium Chloride 0.9% 50 ML IV SCH (17:30)
[2022-04-02] MEDS ORDERED: Insulin Lispro 100 Unit/ML 3 ML KwikPen SUBCUT PRN (17:35)
[2022-04-02] MEDS ORDERED: 50% Dextrose in Water 50 ML Syringe IVPUSH PRN (17:35)
[2022-04-02] MEDS ORDERED: Glucagon,Human Recombinant 1 MG Vial IM PRN (17:35)
[2022-04-02] MEDS ORDERED: Magnesium Sulfate/Water 4 GM in Premix Bag 1 BAG IV ONE (18:00)
[2022-04-02] MEDS: cefTRIAXone 1 GM Vial IVPUSH SCH (18:30)
[2022-04-02] MEDS: Enoxaparin 30 MG/0.3 ML Syringe SUBCUT SCH (18:32)
[2022-04-02] MEDS: Pantoprazole 40 MG Tab.CR PO SCH (20:13)
[2022-04-02] MEDS: Potassium Chloride 20 MEQ Tab.ER PO SCH (20:13)
[2022-04-02] MEDS: Saccharomyces Boulardii (Probiotic) 250 MG Cap PO SCH (20:13)
[2022-04-02] MEDS: Simethicone 80 MG Tab.Chew PO PRN (22:27)
[2022-04-02] MEDS: Ondansetron 4 MG Tab.DIS PO PRN (22:45)
[2022-04-03] MEDS: Acetaminophen 500 MG Tab PO PRN ×2 (04:40→20:11)
[2022-04-03] MEDS: Sodium Chloride 0.9% 1,000 ML IV SCH ×3 (06:41→21:15)
[2022-04-03 06:57] LABS: ESTIMATED GFR 34 mL/min (>60)
[2022-04-03] MEDS ORDERED: Levothyroxine 112 MCG Tab PO SCH (07:30)
[2022-04-03] MEDS: Ondansetron 4 MG Tab.DIS PO PRN ×3 (07:56→20:11)
[2022-04-03] MEDS ORDERED: Calcium Carbonate 500 MG Tablet PO SCH (09:00)
[2022-04-03] MEDS: Potassium Chloride 20 MEQ Tab.ER PO SCH ×3 (09:14→20:09)
[2022-04-03] MEDS: PARoxetine 20 MG Tab PO SCH (09:14)
[2022-04-03] MEDS: Saccharomyces Boulardii (Probiotic) 250 MG Cap PO SCH ×2 (09:14→20:08)
[2022-04-03] MEDS: Famotidine 20 MG Tab PO SCH (09:14)
[2022-04-03] MEDS: Calcium Carbonate 500 MG Tablet PO SCH ×2 (09:15→20:10)
[2022-04-03] MEDS: Magnesium Oxide 400 MG Tab PO SCH (09:16)
[2022-04-03] MEDS: Sodium Chloride 0.9% 10 ML Syringe FLUSH PRN ×2 (14:53→18:55)
[2022-04-03] MEDS: Enoxaparin 30 MG/0.3 ML Syringe SUBCUT SCH (18:52)
[2022-04-03] MEDS: cefTRIAXone 1 GM Vial IVPUSH SCH (18:55)
[2022-04-03] MEDS: Pantoprazole 40 MG Tab.CR PO SCH (20:10)
[2022-04-03] MEDS: Simethicone 80 MG Tab.Chew PO PRN (21:14)
[2022-04-04] MEDS: Sodium Chloride 0.9% 1,000 ML IV SCH ×2 (03:45→04:07)
[2022-04-04] MEDS ORDERED: Levothyroxine 112 MCG Tab PO SCH (06:00)
[2022-04-04] MEDS: Acetaminophen 500 MG Tab PO PRN (06:20)
[2022-04-04 06:38] LABS: ESTIMATED GFR 57 mL/min (>60)
[2022-04-04] MEDS: Simethicone 80 MG Tab.Chew PO PRN (06:51)
[2022-04-04] MEDS: Ondansetron 4 MG Tab.DIS PO PRN ×3 (06:52→15:27)
[2022-04-04] MEDS: Saccharomyces Boulardii (Probiotic) 250 MG Cap PO SCH (08:25)
[2022-04-04] MEDS: Potassium Chloride 20 MEQ Tab.ER PO SCH ×2 (08:25→14:22)
[2022-04-04] MEDS: Magnesium Oxide 400 MG Tab PO SCH (08:25)
[2022-04-04] MEDS: Calcium Carbonate 500 MG Tablet PO SCH (08:25)
[2022-04-04] MEDS: Famotidine 20 MG Tab PO SCH (08:26)
[2022-04-04] MEDS: PARoxetine 20 MG Tab PO SCH (08:26)
[2022-04-04] MEDS ORDERED: Iopamidol 755 Mg/ML 100 ML Bottle IV ONE (11:15)
[2022-04-04] MEDS: Sodium Chloride 0.9% 10 ML Syringe FLUSH PRN ×2 (15:29→16:39)
[2022-04-04] MEDS ORDERED: Sodium Chloride 0.9% 1,000 ML IV SCH (16:30)
[2022-04-04] MEDS ORDERED: cefTRIAXone 1 GM Vial IVPUSH SCH (17:30)
[2022-04-04 17:31] VITALS: BP 147/74; PULSE 92
== END 2022-04-04 17:05 | DRG 683 ==
LOC: FB.ED 12:53 → FB.MS 15:38
PROVIDERS: ADMIT Family Medicine; ATTEND Family Medicine
DX: N17.9 Acute kidney failure, unspecified (principal); R11.10 Vomiting, unspecified; R19.7 Diarrhea, unspecified; N30.00 Acute cystitis without hematuria; K56.609 Unspecified intestinal obstruction, unspecified as to partial versus complete obstruction; I47.1 Supraventricular tachycardia; E83.51 Hypocalcemia; Z20.822 Contact with and (suspected) exposure to COVID-19; E11.43 Type 2 diabetes mellitus with diabetic autonomic (poly)neuropathy; K31.84 Gastroparesis; E03.9 Hypothyroidism, unspecified; Z51.5 Encounter for palliative care; E86.0 Dehydration; E87.6 Hypokalemia; E83.42 Hypomagnesemia; I10 Essential (primary) hypertension; J44.9 Chronic obstructive pulmonary disease, unspecified; Z79.84 Long term (current) use of oral hypoglycemic drugs; M54.9 Dorsalgia, unspecified; Z79.890 Hormone replacement therapy; G89.29 Other chronic pain; M54.2 Cervicalgia; E11.42 Type 2 diabetes mellitus with diabetic polyneuropathy; M54.17 Radiculopathy, lumbosacral region; K21.00 Gastro-esophageal reflux disease with esophagitis, without bleeding; F41.9 Anxiety disorder, unspecified; F32.A Depression, unspecified; Z87.891 Personal history of nicotine dependence; Z85.038 Personal history of other malignant neoplasm of large intestine; Z90.49 Acquired absence of other specified parts of digestive tract; Z90.710 Acquired absence of both cervix and uterus; Z88.8 Allergy status to other drugs, medicaments and biological substances; Z79.82 Long term (current) use of aspirin; Z79.899 Other long term (current) drug therapy; Z86.718 Personal history of other venous thrombosis and embolism
CPT/HCPCS: 80053; 83605; 83690; 83735; 85025; 86140; 93005; A9270; J2405; J3475; J3490; J7030 ×2; U0002; 36415; 72148; 74177; 80048; 81001; 82947; 87045; 87046; 87086; 87088; 87186; 87427; 96361; 96365; 96375; 97110-GP; 97116-GP; 97162-GP; 97165-GO; 99285-25; J0696; J1650; J1815; Q0162; Q9967

== ENCOUNTER 2022-04-20 09:43 | Emergency (ER) | payer MEDICARE, MEDICAID ==
[2022-04-20] MEDS ORDERED: Sodium Chloride 0.9% 10 ML Syringe FLUSH PRN (09:58)
[2022-04-20] MEDS ORDERED: Magnesium Sulfate/Water 2 GM in Premix Bag 1 BAG IV ONE (10:13)
[2022-04-20] MEDS ORDERED: NS + KCl 20mEq/L 1,000 ML IV SCH (10:15)
[2022-04-20] MEDS ORDERED: Magnesium Sulfate/Water 50 ML ONE (10:17)
[2022-04-20] MEDS ORDERED: Potassium Chloride 20 MEQ Tab.ER PO ONE (10:24)
[2022-04-20] MEDS: Ondansetron 4 MG/2 ML SDV IVPUSH ONE ×2 (14:44→14:52)
[2022-04-20 18:33] VITALS: BP 103/76; PULSE 97
== END 2022-04-20 15:05 | disposition home or self-care (01) ==
LOC: FB.ED 09:43
DX: E83.42 Hypomagnesemia (principal); E87.6 Hypokalemia; E86.0 Dehydration; J44.9 Chronic obstructive pulmonary disease, unspecified; R11.0 Nausea; I10 Essential (primary) hypertension; E11.9 Type 2 diabetes mellitus without complications; Z90.710 Acquired absence of both cervix and uterus; Z88.6 Allergy status to analgesic agent; Z88.8 Allergy status to other drugs, medicaments and biological substances; Z79.899 Other long term (current) drug therapy; Z79.82 Long term (current) use of aspirin; Z79.4 Long term (current) use of insulin
CPT/HCPCS: 96361; 96365; 96366; 96375; 99283-25; A9270-GY; J2405; J3475; J3480; J3490

== ENCOUNTER 2022-05-20 22:22 | Observation (INO) | payer MEDICARE, MEDICAID ==
[2022-05-20 22:59] LABS: ESTIMATED GFR 57 mL/min (>60)
[2022-05-20] MEDS ORDERED: Potassium Chloride 20 MEQ Tab.ER PO SCH (23:45)
[2022-05-20] MEDS ORDERED: Enoxaparin 40 MG/0.4 ML Syringe SUBCUT SCH (23:45)
[2022-05-21] MEDS: Calcium Gluconate 10% 1 GM/10 ML SDV IVPUSH SCH ×3 (00:25→04:53)
[2022-05-21] MEDS: Potassium Chloride 20 MEQ Tab.ER PO SCH ×3 (00:29→04:18)
[2022-05-21] MEDS: Magnesium Sulfate/Water 50 ML IV SCH ×3 (00:29→04:53)
[2022-05-21] MEDS: Sodium Chloride 0.9% 10 ML Syringe FLUSH PRN ×5 (03:10→10:32)
[2022-05-21] MEDS ORDERED: Acetaminophen 500 MG Tab PO PRN (04:49)
[2022-05-21] MEDS ORDERED: ACETAMINOPHEN 500 MG PO PRN (05:00)
[2022-05-21] MEDS: Ondansetron 4 MG/2 ML SDV IV PRN ×2 (05:23→10:32)
[2022-05-21 07:18] LABS: ESTIMATED GFR 73 mL/min (>60)
[2022-05-21 09:16] VITALS: BP 141/72; PULSE 66
== END 2022-05-21 13:04 | disposition home or self-care (01) ==
LOC: FB.ED 22:22 → FB.MS 23:45
PROVIDERS: ADMIT Emergency Medicine; ATTEND Student in an Organized Health Care Education/Training Program
DX: K31.84 Gastroparesis (principal); E83.51 Hypocalcemia; E87.6 Hypokalemia; R60.9 Edema, unspecified; R10.30 Lower abdominal pain, unspecified; R53.1 Weakness; K21.00 Gastro-esophageal reflux disease with esophagitis, without bleeding; I10 Essential (primary) hypertension; F41.9 Anxiety disorder, unspecified; F32.A Depression, unspecified; E83.42 Hypomagnesemia; J45.909 Unspecified asthma, uncomplicated; E11.40 Type 2 diabetes mellitus with diabetic neuropathy, unspecified; Z88.8 Allergy status to other drugs, medicaments and biological substances; Z88.2 Allergy status to sulfonamides; Z88.5 Allergy status to narcotic agent; Z79.899 Other long term (current) drug therapy; Z79.890 Hormone replacement therapy; Z98.890 Other specified postprocedural states; Z90.710 Acquired absence of both cervix and uterus; Z87.891 Personal history of nicotine dependence; Z90.49 Acquired absence of other specified parts of digestive tract
CPT/HCPCS: 36415; 80048; 80053; 81001; 82306; 82330; 83735; 83970; 85025; 96365; 96366; 96372; 96375; 96376; A9270; G0378; J0610; J1650; J2405; J3475; J3490

== ENCOUNTER 2022-07-14 11:35 | Emergency (ER) | payer MEDICARE, MEDICAID ==
[2022-07-14] MEDS ORDERED: Ondansetron 4 MG/2 ML SDV IVPUSH ONE (11:40)
[2022-07-14] MEDS ORDERED: Sodium Chloride 0.9% 1,000 ML IV SCH (11:45)
[2022-07-14 12:13] LABS: ESTIMATED GFR 73 mL/min (>60)
[2022-07-14] MEDS ORDERED: Metoclopramide 10 MG/2 ML SDV IVPUSH ONE (12:45)
[2022-07-14] MEDS ORDERED: Magnesium Sulfate/Water 4 GM in Premix Bag 1 BAG IV ONE (12:45)
[2022-07-14] MEDS ORDERED: NS + KCl 20mEq/L 1,000 ML IV SCH (13:00)
[2022-07-14] MEDS ORDERED: Magnesium Sulfate/Water 2 GM in Premix Bag 1 BAG IV ONE (13:01)
[2022-07-14 18:18] VITALS: BP 117/78; PULSE 90
== END 2022-07-14 16:30 | disposition home or self-care (01) ==
LOC: FB.ED 11:35
DX: R11.10 Vomiting, unspecified (principal); I10 Essential (primary) hypertension; J44.9 Chronic obstructive pulmonary disease, unspecified; K21.9 Gastro-esophageal reflux disease without esophagitis; E11.42 Type 2 diabetes mellitus with diabetic polyneuropathy; Z88.8 Allergy status to other drugs, medicaments and biological substances; Z88.5 Allergy status to narcotic agent; Z79.82 Long term (current) use of aspirin; Z79.84 Long term (current) use of oral hypoglycemic drugs; Z79.899 Other long term (current) drug therapy
CPT/HCPCS: 80053; 83735; 85025; 96361; 96365; 96366; 96368; 96375; 99284-25; J2405; J3475; J3480; J7030

== ENCOUNTER 2022-08-01 11:49 | Emergency (ER) | payer MEDICARE, MEDICAID ==
[2022-08-01] MEDS ORDERED: Sodium Chloride 0.9% 10 ML Syringe FLUSH PRN (11:53)
[2022-08-01] MEDS ORDERED: Ondansetron 4 MG/2 ML SDV IVPUSH ONE (11:55)
[2022-08-01] MEDS ORDERED: Morphine 4 MG/ML VIAL IVPUSH ONE (11:55)
[2022-08-01] MEDS: Sodium Chloride 0.9% 1,000 ML IV SCH ×2 (12:06→18:24)
[2022-08-01 12:26] LABS: ESTIMATED GFR 64 mL/min (>60)
[2022-08-01] MEDS ORDERED: Magnesium Sulfate/Water 4 GM in Premix Bag 1 BAG IV ONE (12:48)
[2022-08-01] MEDS ORDERED: Iopamidol 755 Mg/ML 100 ML Bottle IV ONE (12:56)
[2022-08-01] MEDS ORDERED: Morphine 2 MG/ML SYRINGE IVPUSH PRN (16:22)
[2022-08-01] MEDS ORDERED: Piperacillin/Tazobactam 4.5 GM in Sodium Chloride 0.9% 100 ML IV SCH ×2 (17:00→18:30)
[2022-08-01 18:26] VITALS: PULSE 78
[2022-08-01] MEDS ORDERED: Sodium Chloride 0.9% 1,000 ML IV SCH (18:30)
[2022-08-01 19:37] VITALS: BP 113/62
== END 2022-08-01 20:15 ==
LOC: FB.ED 11:49
DX: K85.90 Acute pancreatitis without necrosis or infection, unspecified (principal); K76.0 Fatty (change of) liver, not elsewhere classified; K83.8 Other specified diseases of biliary tract; E83.42 Hypomagnesemia; I10 Essential (primary) hypertension; J44.9 Chronic obstructive pulmonary disease, unspecified; E11.9 Type 2 diabetes mellitus without complications; K21.9 Gastro-esophageal reflux disease without esophagitis; Z88.5 Allergy status to narcotic agent; Z88.8 Allergy status to other drugs, medicaments and biological substances; Z79.82 Long term (current) use of aspirin; Z79.899 Other long term (current) drug therapy
CPT/HCPCS: 36415; 74177; 80053; 81001; 82150; 83605; 83690; 83735; 85025; 96361; 96365; 96366; 96367; 96375; 96376; 99285; J2270; J2405; J2543; J3475; J7030; Q9967

== ENCOUNTER 2022-09-22 06:10 | Inpatient (IN) | payer MEDICARE, MEDICAID ==
[2022-09-22] MEDS ORDERED: Ondansetron 4 MG Tab.DIS PO ONE (06:39)
[2022-09-22 07:03] LABS: ESTIMATED GFR 51 mL/min (>60)
[2022-09-22] MEDS ORDERED: Potassium Chloride 20 MEQ Tab.ER PO ONE ×2 (07:27→09:30)
[2022-09-22] MEDS ORDERED: Magnesium Sulfate/Water 50 ML ONE (09:08)
[2022-09-22] MEDS ORDERED: Magnesium Sulfate/Water 4 GM in Premix Bag 1 BAG IV ONE (09:08)
[2022-09-22] MEDS ORDERED: Glucagon,Human Recombinant 1 MG Vial IM PRN (12:01)
[2022-09-22] MEDS ORDERED: 50% Dextrose in Water 50 ML Syringe IVPUSH PRN (12:01)
[2022-09-22] MEDS ORDERED: Lactated Ringers 1,000 ML IV SCH (12:15)
[2022-09-22] MEDS: Pantoprazole 40 MG Vial IVPUSH SCH (14:24)
[2022-09-22] MEDS: cefTRIAXone 1 GM Vial IVPUSH SCH (14:25)
[2022-09-22] MEDS ORDERED: Lidocaine 2% HCl 6 ML Jel ONE (14:49)
[2022-09-22] MEDS: Dextrose 5%-0.9% NaCl 1,000 ML IV SCH (18:03)
[2022-09-22] MEDS: Insulin Lispro 100 Unit/ML 3 ML KwikPen SUBCUT SCH (18:44)
[2022-09-23] MEDS: Morphine 2 MG/ML SYRINGE IVPUSH PRN ×2 (00:02→23:06)
[2022-09-23] MEDS: Dextrose 5%-0.9% NaCl 1,000 ML IV SCH ×3 (02:18→18:41)
[2022-09-23 07:04] LABS: ESTIMATED GFR 72 mL/min (>60)
[2022-09-23] MEDS: Insulin Lispro 100 Unit/ML 3 ML KwikPen SUBCUT SCH ×3 (08:25→17:30)
[2022-09-23] MEDS ORDERED: Magnesium Sulfate/Water 4 GM in Premix Bag 1 BAG IV ONE (09:05)
[2022-09-23] MEDS ORDERED: Potassium Chloride 20 MEQ in Premix Bag 1 BAG IV ONE (09:06)
[2022-09-23] MEDS: Pantoprazole 40 MG Vial IVPUSH SCH (13:12)
[2022-09-23] MEDS: cefTRIAXone 1 GM Vial IVPUSH SCH (13:12)
[2022-09-23] MEDS: Ondansetron 4 MG/2 ML SDV IVPUSH PRN ×2 (17:32→23:26)
[2022-09-24] MEDS: Dextrose 5%-0.9% NaCl 1,000 ML IV SCH ×2 (02:35→14:11)
[2022-09-24] MEDS: Ondansetron 4 MG/2 ML SDV IVPUSH PRN ×3 (05:17→14:33)
[2022-09-24] MEDS: Morphine 2 MG/ML SYRINGE IVPUSH PRN (05:55)
[2022-09-24 07:21] LABS: ESTIMATED GFR 83 mL/min (>60)
[2022-09-24] MEDS: Insulin Lispro 100 Unit/ML 3 ML KwikPen SUBCUT SCH ×2 (08:00→11:59)
[2022-09-24] MEDS ORDERED: Potassium Chloride 40 MEQ/20 ML SDV IV ONE (08:20)
[2022-09-24] MEDS ORDERED: Magnesium Sulfate/Water 50 ML IV ONE (08:30)
[2022-09-24] MEDS ORDERED: PAROXETINE HCL 40 MG PO SCH (09:00)
[2022-09-24 09:14] VITALS: BP 152/82; PULSE 63
[2022-09-24] MEDS: Potassium Chloride 100 ML IV SCH ×2 (09:18→13:48)
[2022-09-24] MEDS ORDERED: METOCLOPRAMIDE 10 MG PO PRN (10:49)
[2022-09-24] MEDS ORDERED: LEVOTHYROXINE 112 MCG PO SCH (10:50)
[2022-09-24] MEDS: Pantoprazole 40 MG Vial IVPUSH SCH (12:18)
[2022-09-24] MEDS: cefTRIAXone 1 GM Vial IVPUSH SCH (12:20)
== END 2022-09-24 15:35 | DRG 390 ==
LOC: FB.ED 06:10 → FB.MS 11:12 → OBSVTOIN 12:23
PROVIDERS: ADMIT Student in an Organized Health Care Education/Training Program; ATTEND Student in an Organized Health Care Education/Training Program
PROC: 0D9670Z Drainage of Stomach with Drainage Device, Via Natural or Artificial Opening (ICD-10-PCS; principal; 2022-09-22)
DX: K56.609 Unspecified intestinal obstruction, unspecified as to partial versus complete obstruction (principal); K56.600 Partial intestinal obstruction, unspecified as to cause; E87.6 Hypokalemia; E11.9 Type 2 diabetes mellitus without complications; E83.42 Hypomagnesemia; K62.89 Other specified diseases of anus and rectum; K21.9 Gastro-esophageal reflux disease without esophagitis; E11.3293 Type 2 diabetes mellitus with mild nonproliferative diabetic retinopathy without macular edema, bilateral; K21.00 Gastro-esophageal reflux disease with esophagitis, without bleeding; E03.9 Hypothyroidism, unspecified; D75.839 Thrombocytosis, unspecified; E11.43 Type 2 diabetes mellitus with diabetic autonomic (poly)neuropathy; K31.84 Gastroparesis; M54.2 Cervicalgia; M54.50 Low back pain, unspecified; I10 Essential (primary) hypertension; E86.0 Dehydration; G89.29 Other chronic pain; Z85.038 Personal history of other malignant neoplasm of large intestine; Z85.41 Personal history of malignant neoplasm of cervix uteri; Z90.49 Acquired absence of other specified parts of digestive tract; Z98.890 Other specified postprocedural states; Z87.19 Personal history of other diseases of the digestive system; Z90.710 Acquired absence of both cervix and uterus; Z85.42 Personal history of malignant neoplasm of other parts of uterus; Z86.19 Personal history of other infectious and parasitic diseases; Z90.79 Acquired absence of other genital organ(s); Z79.82 Long term (current) use of aspirin; Z79.899 Other long term (current) drug therapy; Z79.890 Hormone replacement therapy; Z86.718 Personal history of other venous thrombosis and embolism; Z79.01 Long term (current) use of anticoagulants; Z88.8 Allergy status to other drugs, medicaments and biological substances
CPT/HCPCS: 36415; 74018; 74176; 80048; 82040; 82247; 82947; 83735; 84075; 84155; 84443; 84450; 84460; 85025; 93005; 96365; 96366; 96367; 96375; 96376; 99223; 99233; 99239; 99285-25; A9270-GY; C9113; G0378; J0696; J1815; J2270; J2405; J3475; J3480; J7120; Q0162

== ENCOUNTER 2022-10-23 12:30 | Inpatient (IN) | payer MEDICARE, MEDICAID ==
[2022-10-23] MEDS ORDERED: Ondansetron 4 MG/2 ML SDV IVPUSH ONE ×2 (12:46→16:34)
[2022-10-23] MEDS ORDERED: Sodium Chloride 0.9% 1,000 ML IV SCH ×2 (13:00→15:00)
[2022-10-23 13:21] LABS: ESTIMATED GFR 12 mL/min (>60)
[2022-10-23] MEDS ORDERED: Iopamidol 755 Mg/ML 100 ML Bottle IV ONE (13:47)
[2022-10-23] MEDS ORDERED: Magnesium Sulfate/Water 50 ML IV ONE (14:45)
[2022-10-23] MEDS: Sodium Chloride 0.9% 1,000 ML IV SCH (16:15)
[2022-10-23] MEDS: cefTRIAXone 1 GM Vial IVPUSH SCH (18:21)
[2022-10-23 18:31] LABS: ESTIMATED GFR 19 mL/min (>60)
[2022-10-23] MEDS: Ondansetron 4 MG/2 ML SDV IVPUSH PRN (22:09)
[2022-10-24] MEDS: Ondansetron 4 MG/2 ML SDV IVPUSH PRN ×3 (02:01→11:31)
[2022-10-24] MEDS ORDERED: Lidocaine 2% HCl 6 ML Jel ONE (03:30)
[2022-10-24] MEDS: Sodium Chloride 0.9% 1,000 ML IV SCH ×2 (06:44→16:33)
[2022-10-24 06:53] LABS: ESTIMATED GFR 22 mL/min (>60)
[2022-10-24] MEDS ORDERED: [UNRECOGNIZED DRUG - OTHER] TOP PRN (14:36)
[2022-10-24] MEDS: Pantoprazole 40 MG Vial IVPUSH SCH (14:46)
[2022-10-24] MEDS ORDERED: Carboxymethylcellulose Sodium 0.5% Ophth Soln 15 ML Bottle EYEBOTH PRN (15:01)
[2022-10-24] MEDS: cefTRIAXone 1 GM Vial IVPUSH SCH (16:05)
[2022-10-25] MEDS: Sodium Chloride 0.9% 1,000 ML IV SCH ×3 (01:17→22:04)
[2022-10-25 07:04] LABS: ESTIMATED GFR 51 mL/min (>60)
[2022-10-25] MEDS ORDERED: glipiZIDE 2.5 MG Tab.ER PO SCH (09:00)
[2022-10-25] MEDS: Pantoprazole 40 MG Vial IVPUSH SCH (09:20)
[2022-10-25] MEDS: Sodium Chloride 0.9% 10 ML Syringe FLUSH PRN (09:22)
[2022-10-25] MEDS: cefTRIAXone 1 GM Vial IVPUSH SCH (16:28)
[2022-10-26 06:42] LABS: ESTIMATED GFR 64 mL/min (>60)
[2022-10-26] MEDS ORDERED: Dextrose 5%-Lact Ringers w/KCl 1,000 ML IV SCH (08:30)
[2022-10-26] MEDS ORDERED: Magnesium Sulfate/Water 2 GM in Premix Bag 1 BAG IV ONE (08:31)
[2022-10-26] MEDS: Pantoprazole 40 MG Vial IVPUSH SCH (08:43)
[2022-10-26] MEDS ORDERED: Albuterol 8 GM Inhaler INH PRN (11:02)
[2022-10-26] MEDS ORDERED: Acetaminophen 500 MG Tab PO PRN (11:02)
[2022-10-26] MEDS ORDERED: Ondansetron 4 MG Tab.DIS PO PRN (11:02)
[2022-10-26] MEDS ORDERED: Simethicone 80 MG Tab.Chew PO PRN (11:13)
[2022-10-26] MEDS: Nitrofurantoin Monohydrate/Macrocrystalline 100 MG Cap PO SCH ×2 (12:06→20:48)
[2022-10-26] MEDS: PARoxetine 20 MG Tab PO SCH (12:06)
[2022-10-26] MEDS: Enoxaparin 40 MG/0.4 ML Syringe SUBCUT SCH (14:51)
[2022-10-26] MEDS: Metoclopramide 5 MG Tab PO SCH (17:55)
[2022-10-26] MEDS: Pantoprazole 40 MG Tab.CR PO SCH (17:58)
[2022-10-26] MEDS: Dextrose 5%-Lact Ringers w/KCl 1,000 ML IV SCH (22:55)
[2022-10-27] MEDS: Levothyroxine 150 MCG Tab PO SCH (06:23)
[2022-10-27] MEDS: Pantoprazole 40 MG Tab.CR PO SCH ×2 (06:31→17:33)
[2022-10-27] MEDS: Metoclopramide 5 MG Tab PO SCH ×3 (06:31→17:33)
[2022-10-27 06:42] LABS: ESTIMATED GFR 64 mL/min (>60)
[2022-10-27] MEDS ORDERED: Magnesium Sulfate/Water 2 GM in Premix Bag 1 BAG IV ONE (08:18)
[2022-10-27] MEDS ORDERED: Potassium Chloride 20 MEQ Tab.ER PO SCH (09:00)
[2022-10-27] MEDS: Dextrose 5%-Lact Ringers w/KCl 1,000 ML IV SCH (09:10)
[2022-10-27] MEDS: Potassium Chloride 20 MEQ Tab.ER PO SCH ×2 (09:28→20:26)
[2022-10-27] MEDS: Aspirin 81 MG Tab.EC PO SCH (09:28)
[2022-10-27] MEDS: Famotidine 20 MG Tab PO SCH (09:29)
[2022-10-27] MEDS: Magnesium Oxide 400 MG Tab PO SCH (09:29)
[2022-10-27] MEDS: Nitrofurantoin Monohydrate/Macrocrystalline 100 MG Cap PO SCH ×2 (09:29→20:26)
[2022-10-27] MEDS: Pantoprazole 40 MG Vial IVPUSH SCH (09:30)
[2022-10-27] MEDS: PARoxetine 20 MG Tab PO SCH (09:31)
[2022-10-27] MEDS: Sodium Chloride 0.9% 10 ML Syringe FLUSH PRN (09:34)
[2022-10-27] MEDS: Enoxaparin 40 MG/0.4 ML Syringe SUBCUT SCH (14:14)
[2022-10-28 00:05] VITALS: BP 133/88
[2022-10-28] MEDS: Levothyroxine 150 MCG Tab PO SCH (06:34)
[2022-10-28] MEDS: Pantoprazole 40 MG Tab.CR PO SCH (06:34)
[2022-10-28] MEDS: Metoclopramide 5 MG Tab PO SCH ×2 (06:34→11:53)
[2022-10-28 06:47] LABS: ESTIMATED GFR 72 mL/min (>60)
[2022-10-28] MEDS ORDERED: Magnesium Chloride 64 MG Tab.ER PO SCH (09:00)
[2022-10-28] MEDS: Magnesium Oxide 400 MG Tab PO SCH (09:27)
[2022-10-28] MEDS: Nitrofurantoin Monohydrate/Macrocrystalline 100 MG Cap PO SCH (09:27)
[2022-10-28] MEDS: PARoxetine 20 MG Tab PO SCH (09:27)
[2022-10-28] MEDS: Potassium Chloride 20 MEQ Tab.ER PO SCH (09:28)
[2022-10-28] MEDS: Famotidine 20 MG Tab PO SCH (09:29)
[2022-10-28] MEDS: Aspirin 81 MG Tab.EC PO SCH (09:36)
[2022-10-28] MEDS: Sodium Chloride 0.9% 10 ML Syringe FLUSH PRN (09:37)
[2022-10-28] MEDS: Pantoprazole 40 MG Vial IVPUSH SCH (09:37)
[2022-10-28 11:48] VITALS: PULSE 100
== END 2022-10-28 13:20 | disposition home or self-care (01) | DRG 683 ==
LOC: FB.ED 12:30 → FB.MS 10-24 11:13
PROVIDERS: ADMIT Emergency Medicine; ATTEND Family Medicine
DX: N17.9 Acute kidney failure, unspecified (principal); K56.600 Partial intestinal obstruction, unspecified as to cause; N30.00 Acute cystitis without hematuria; E03.9 Hypothyroidism, unspecified; F32.A Depression, unspecified; F41.9 Anxiety disorder, unspecified; Z51.5 Encounter for palliative care; K62.89 Other specified diseases of anus and rectum; E87.6 Hypokalemia; E83.42 Hypomagnesemia; K21.9 Gastro-esophageal reflux disease without esophagitis; E86.0 Dehydration; E11.319 Type 2 diabetes mellitus with unspecified diabetic retinopathy without macular edema; I10 Essential (primary) hypertension; J44.9 Chronic obstructive pulmonary disease, unspecified; K59.00 Constipation, unspecified; G89.29 Other chronic pain; M54.9 Dorsalgia, unspecified; M54.2 Cervicalgia; B96.20 Unspecified Escherichia coli [E. coli] as the cause of diseases classified elsewhere; E11.42 Type 2 diabetes mellitus with diabetic polyneuropathy; Z15.09 Genetic susceptibility to other malignant neoplasm; Z79.82 Long term (current) use of aspirin; Z79.899 Other long term (current) drug therapy; Z79.890 Hormone replacement therapy; Z90.49 Acquired absence of other specified parts of digestive tract; Z86.010 Personal history of colon polyps; Z98.890 Other specified postprocedural states; Z88.8 Allergy status to other drugs, medicaments and biological substances; Z88.5 Allergy status to narcotic agent; Z86.718 Personal history of other venous thrombosis and embolism; Z90.710 Acquired absence of both cervix and uterus; Z90.721 Acquired absence of ovaries, unilateral
CPT/HCPCS: 36410; 36415; 74018; 74019; 74177; 80048; 80053; 81001; 82150; 83605; 83690; 83735; 84100; 84443; 85025; 87086; 87088; 87186; 96361; 96365; 96366; 96375; 96376; 97116-GP; 97161-GP; 97165-GO; 99285; 99285-25; A9270-GY; C9113; J0696; J1650; J2405; J3475; J3480; J3490; J7030; Q9967

== ENCOUNTER 2022-11-20 09:42 | Emergency (ER) | payer MEDICARE, MEDICAID ==
[2022-11-20] MEDS ORDERED: Sodium Chloride 0.9% 10 ML Syringe FLUSH PRN (09:58)
[2022-11-20] MEDS ORDERED: Ondansetron 4 MG/2 ML SDV IVPUSH ONE (09:58)
[2022-11-20] MEDS ORDERED: Sodium Chloride 0.9% 1,000 ML IV ONE (10:54)
[2022-11-20 11:01] LABS: ESTIMATED GFR 39 mL/min (>60)
[2022-11-20] MEDS ORDERED: Sodium Chloride 0.9% 1,000 ML IV SCH (12:15)
[2022-11-20] MEDS ORDERED: Sodium Chloride 0.9% 500 ML IV ONE (12:15)
[2022-11-20] MEDS ORDERED: cefTRIAXone 1 GM Vial IVPUSH ONE (13:04)
[2022-11-20] MEDS ORDERED: Magnesium Sulfate/Water 2 GM in Premix Bag 1 BAG IV ONE (13:36)
[2022-11-20 19:59] VITALS: BP 111/86; PULSE 92
== END 2022-11-20 15:18 ==
LOC: FB.ED 09:42
DX: K56.600 Partial intestinal obstruction, unspecified as to cause (principal); E83.42 Hypomagnesemia; E86.0 Dehydration; N39.0 Urinary tract infection, site not specified; N17.9 Acute kidney failure, unspecified; I10 Essential (primary) hypertension; J44.9 Chronic obstructive pulmonary disease, unspecified; K21.9 Gastro-esophageal reflux disease without esophagitis; E11.42 Type 2 diabetes mellitus with diabetic polyneuropathy; Z87.891 Personal history of nicotine dependence; Z88.8 Allergy status to other drugs, medicaments and biological substances; Z88.5 Allergy status to narcotic agent; Z79.82 Long term (current) use of aspirin; Z79.899 Other long term (current) drug therapy
CPT/HCPCS: 36415; 74176; 80053; 81001; 83605; 83690; 83735; 84484; 85025; 86140; 87040; 87077; 87086; 87088; 87186; 93005; 93010; 96361; 96365; 96375; 99285; 99285-25; J0696; J2405; J3475; J7030; J7040

== ENCOUNTER 2023-03-17 13:59 | Emergency (ER) | payer MEDICARE, MEDICAID ==
[2023-03-17] MEDS ORDERED: Sodium Chloride 0.9% 1,000 ML IV ONE (14:31)
[2023-03-17 14:49] LABS: BASOPHILS PERCENT AUTO 0.5 % (0.2-1.5); EOSINOPHILS ABSOLUTE AUTO 0.2 x10-3/uL (0.0-0.8); EOSINOPHILS PERCENT AUTO 2.5 % (0.6-8.1); HEMATOCRIT 27.4 % (34.2-48.2); HEMOGLOBIN 9.2 g/dL (11.4-15.5); LYMPHOCYTES ABSOLUTE AUTO 0.3 x10-3/uL (1.0-4.4); LYMPHOCYTES PERCENT AUTO 4.4 % (18.4-52.1); MEAN CORPUSCULAR HGB CONC 33.5 g/dL (31.9-34.8); MEAN CORPUSCULAR VOLUME 89.5 fL (76.7-100.5); MONOCYTES ABSOLUTE AUTO 0.7 x10-3/uL (0.3-1.0); NEUTROPHILS PERCENT AUTO 81.6 % (30.8-76.2); PLATELET COUNT,PLT 297 x10(3)uL (151-488); RED BLOOD CELL COUNT 3.06 x10(6)uL (3.60-5.20); RED CELL DISTRIBUTION WIDTH 16.2 % (12.3-16.5); WHITE BLOOD CELL COUNT,WBC 6.1 x10-3/uL (3.0-10.3)
[2023-03-17 14:56] LABS: BLOOD UREA NITROGEN,BUN 34 mg/dL (7-18); BUN/CREATININE RATIO 26.2 (9-20); CALCIUM 9.1 mg/dL (8.6-10.2); CARBON DIOXIDE,CO2 22 mmol/L (21-32); CHLORIDE,CL 100 mmol/L (100-110); CREATININE 1.3 mg/dL (0.55-1.02); ESTIMATED GFR 46 mL/min (>60); GLUCOSE RANDOM 106 mg/dL (80-116); POTASSIUM,K 4.9 mmol/L (3.5-5.3); SODIUM,NA 131 mmol/L (135-145)
[2023-03-17 15:03] LABS: A/G RATIO 0.5; ALANINE AMINOTRANSFERASE,ALT 17 U/L (12-36); ALBUMIN 2.2 g/dL (3.2-4.6); ALKALINE PHOSPHATASE 99 IU/L (56-112); ASPARTATE AMNIOTRANSFERASE,AST 16 IU/L (5-25); BILIRUBIN TOTAL 0.3 mg/dL (0.1-1.3); MAGNESIUM 1.7 mg/dL (1.8-2.5); PROTEIN TOTAL,TP 6.9 g/dL (6.0-8.0)
[2023-03-17 15:06] LABS: C-REACTIVE PROTEIN 9.35 mg/dL (<0.33)
[2023-03-17] MEDS ORDERED: Sodium Chloride 0.9% 1,000 ML IV SCH ×2 (16:00→17:30)
[2023-03-17 17:17] VITALS: BP 100/62; PULSE 68
[2023-03-17] MEDS ORDERED: Morphine 4 MG/ML VIAL IVPUSH ONE (17:26)
[2023-03-17] MEDS ORDERED: Ondansetron 4 MG/2 ML SDV IVPUSH ONE (17:26)
[2023-03-17] MEDS ORDERED: Piperacillin/Tazobactam 3.375 GM in Sodium Chloride 0.9% 50 ML IV ONE (17:27)
== END 2023-03-17 19:25 ==
LOC: FB.ED 13:59
DX: N39.0 Urinary tract infection, site not specified (principal); N13.30 Unspecified hydronephrosis; E86.0 Dehydration; R33.9 Retention of urine, unspecified; R31.0 Gross hematuria; I95.9 Hypotension, unspecified; J45.909 Unspecified asthma, uncomplicated; I10 Essential (primary) hypertension; E11.9 Type 2 diabetes mellitus without complications; Z88.8 Allergy status to other drugs, medicaments and biological substances; Z88.5 Allergy status to narcotic agent; Z79.82 Long term (current) use of aspirin; Z79.899 Other long term (current) drug therapy
CPT/HCPCS: 36415; 51702; 74176; 80053; 83605; 83690; 83735; 85025; 86140; 87040; 87077; 87086; 87088; 87186; 96361; 96365; 96375; 99285; J1642; J2270; J2405; J2543; J3490; J7030

== ENCOUNTER 2023-04-08 18:02 | Emergency (ER) | payer MEDICARE, MEDICAID ==
[2023-04-08] MEDS ORDERED: Sodium Chloride 0.9% 500 ML IV ONE (19:17)
[2023-04-08 19:53] LABS: MEAN CORPUSCULAR HEMOGLOBIN 29.8 pg (23.9-33.9); MEAN CORPUSCULAR VOLUME 87.6 fL (76.7-100.5); MEAN PLATELET VOLUME 7.5 fL (7.1-12.4); PLATELET COUNT,PLT 203 x10(3)uL (151-488); RED BLOOD CELL COUNT 1.52 x10(6)uL (3.60-5.20); RED CELL DISTRIBUTION WIDTH 19.1 % (12.3-16.5); WHITE BLOOD CELL COUNT,WBC 8.8 x10-3/uL (3.0-10.3)
[2023-04-08 19:58] LABS: BLOOD UREA NITROGEN,BUN 27 mg/dL (7-18); BUN/CREATININE RATIO 24.5 (9-20); CALCIUM 8.2 mg/dL (8.6-10.2); CARBON DIOXIDE,CO2 25 mmol/L (21-32); CHLORIDE,CL 101 mmol/L (100-110); CREATININE 1.1 mg/dL (0.55-1.02); EST CRCL DRUG DOSING (CG) 51.64 mL/min; ESTIMATED GFR 57 mL/min (>60); GLUCOSE RANDOM 114 mg/dL (80-116); POTASSIUM,K 4.6 mmol/L (3.5-5.3); SODIUM,NA 134 mmol/L (135-145)
[2023-04-08 20:00] LABS: HEMATOCRIT 13.3 % (34.2-48.2); HEMOGLOBIN 4.5 g/dL (11.4-15.5)
[2023-04-08] MEDS: Sodium Chloride 0.9% 250 ML IV SCH (20:00)
[2023-04-08 20:04] LABS: A/G RATIO 0.4; ALANINE AMINOTRANSFERASE,ALT 14 U/L (12-36); ALBUMIN 1.9 g/dL (3.2-4.6); ALKALINE PHOSPHATASE 66 IU/L (56-112); ASPARTATE AMNIOTRANSFERASE,AST 16 IU/L (5-25); BILIRUBIN TOTAL 0.4 mg/dL (0.1-1.3); MAGNESIUM 1.8 mg/dL (1.8-2.5); PROTEIN TOTAL,TP 6.3 g/dL (6.0-8.0)
[2023-04-08 20:39] LABS: BAND PERCENT MAN 5 % (0-6); LYMPHOCYTES PERCENT MAN 6 % (13-37); MONOCYTES PERCENT MAN 5 % (4-12); SEG NEUTROPHILS PERCENT MAN 84 % (46-82)
[2023-04-08] MEDS ORDERED: Lidocaine 2% HCl 6 ML Jel ONE (20:43)
[2023-04-08] MEDS: Lidocaine 2% HCl 6 ML Jel ONE ×2 (20:43→21:11)
[2023-04-08] MEDS ORDERED: Naloxone 0.4 MG/ML SDV IVPUSH PRN (21:03)
[2023-04-08] MEDS ORDERED: Ondansetron 4 MG/2 ML SDV IVPUSH ONE (21:03)
[2023-04-08] MEDS ORDERED: Morphine 4 MG/ML VIAL IVPUSH ONE (21:03)
[2023-04-08] MEDS ORDERED: Sodium Chloride 0.9% 1,000 ML IV SCH (21:15)
[2023-04-08 21:47] LABS: BILIRUBIN,URINE NEGATIVE (NEGATIVE); GLUCOSE,URINE NORMAL (NORMAL); KETONES,URINE NEGATIVE (NEGATIVE); LEUKOCYTE ESTERASE,URINE NEGATIVE (NEGATIVE); NITRITE,URINE NEGATIVE (NEGATIVE); OCCULT BLOOD,URINE LARGE (NEGATIVE); PROTEIN,URINE 500 mg/dL (NEGATIVE); UROBILINOGEN,URINE NORMAL (NEGATIVE)
[2023-04-08 22:06] LABS: APPEARANCE,URINE CLOUDY (CLEAR); COLOR,URINE RED (YELLOW); RBC,URINE PACKED (0-5); WBC,URINE NOT SEEN (0-5)
[2023-04-08 22:07] LABS: BACTERIA,URINE NOT SEEN (NS); SQUAMOUS EPITHELIAL CELLS,UR NOT SEEN (NS,R,O)
[2023-04-08] MEDS ORDERED: diphenhydrAMINE 50 MG/ML SDV IVPUSH ONE (23:06)
[2023-04-08] MEDS ORDERED: Acetaminophen 500 MG Tab PO ONE (23:08)
[2023-04-09] MEDS ORDERED: Sodium Chloride 0.9% 500 ML IV ONE (00:06)
[2023-04-09 00:12] LABS: BASE EXCESS VENOUS,POC -5 mmol/L (-2 - 3+); PCO2 VENOUS,POC 38 mmHg (41-51); PH VENOUS,POC 7.34 pH Units (7.32-7.43)
[2023-04-09] MEDS ORDERED: VANCOmycin 1.25 GM/250 ML 1.25 GM in Premix Bag 1 BAG IV ONE (00:14)
[2023-04-09] MEDS ORDERED: Piperacillin/Tazobactam 3.375 GM in Sodium Chloride 0.9% 50 ML IV ONE (00:15)
[2023-04-09] MEDS ORDERED: Sodium Chloride 0.9% 1,000 ML IV ONE (00:48)
[2023-04-09] MEDS: Sodium Chloride 0.9% 250 ML IV SCH (01:09)
[2023-04-09 05:14] VITALS: BP 75/37; PULSE 112
== END 2023-04-09 01:52 ==
LOC: FB.ED 18:02
DX: T80.92XA Unspecified transfusion reaction, initial encounter (principal); R31.0 Gross hematuria; D62 Acute posthemorrhagic anemia; R57.1 Hypovolemic shock; I10 Essential (primary) hypertension; J44.9 Chronic obstructive pulmonary disease, unspecified; K21.9 Gastro-esophageal reflux disease without esophagitis; E11.40 Type 2 diabetes mellitus with diabetic neuropathy, unspecified; Z87.891 Personal history of nicotine dependence; Z88.5 Allergy status to narcotic agent; Z88.8 Allergy status to other drugs, medicaments and biological substances; Z79.82 Long term (current) use of aspirin; Z79.899 Other long term (current) drug therapy
CPT/HCPCS: 36415; 36430; 51702; 71045; 80053; 81001; 83605; 83735; 85025; 86140; 86850; 86900; 86901; 86920; 86922; 87040; 87077; 87086; 87186; 93005; 96365; 96367; 96375; 99285; A9270; J1200; J2270; J2405; J2543; J3370; J3490; J7040; J7050; P9016; J7030